=== PATIENT | female | born 1970 | race Caucasian/White ===

== ENCOUNTER → 2019-01-16 | Outpatient (CLI) | payer BC, SELFPAY ==
--- NOTE | 2019-01-16 12:30 | US_ITS ---
STUDY: THYROID ULTRASOUND REASON FOR EXAM: Female, 48 years old. Cystic thyroid nodules TECHNIQUE: Ultrasound evaluation of the thyroid was performed with real-time and static godoy-scale imaging. COMPARISON: None. FINDINGS: RIGHT LOBE: The right lobe of the thyroid gland measures 5.4 x 2.3 x 1.8 cm. There is a heterogeneous echotexture. There are multiple right thyroid lobe nodules, some of which are solid and some are complex cystic in nature. The largest is located in the midpole and measures 2.5 x 2.0 x 1.3 cm. Vascularity of these nodules is predominantly perinodular. LEFT LOBE: The left lobe of the thyroid gland measures 5.5 x 1.7 x 1.8 cm. There is a heterogeneous echotexture. There are multiple cystic to complex cystic nodules of the left thyroidal lobe, the largest located in the midpole measuring 1.8 x 1.3 x 1.3 cm. ISTHMUS: The isthmus measures 3 mm . The regional lymph nodes are normal. US/Thyroid IMPRESSION: Multiple right thyroid nodules some of which are solid and some of which are complex cystic in nature. Multiple cystic to complex cystic left thyroid lobe nodules also noted. No thyroidal calcifications are seen. The perithyroidal soft tissue fascial planes are preserved. Electronically Signed: Tremaine George MD at 22:32 EDT , Service support ,
== END | disposition home or self-care (01) ==
PROVIDERS: Family Provider Internal Medicine; PCP Internal Medicine; Referring Provider Internal Medicine; Visit Provider Internal Medicine
DX: E04.1 Nontoxic single thyroid nodule (principal)
CPT/HCPCS: 76536

== ENCOUNTER 2019-11-15 18:50 | Inpatient (IN) | payer MEDICAID, SELFPAY ==
[2019-11-15 18:51] VITALS: BP 121/94; PULSE 74; RESP 16; TEMP 36.4; O2SAT 99; BMI 25.0
--- NOTE | 2019-11-15 19:06 | EKG12_ITS ---
Test Reason : DETOX Blood Pressure : / mmHG Vent. Rate : 100 BPM Atrial Rate : 100 BPM P-R Int : 128 ms QRS Dur : 080 ms QT Int : 332 ms P-R-T Axes : 057 066 056 degrees QTc Int : 428 ms Normal sinus rhythm Normal ECG Confirmed by BEN NOBLES, NETTE ([id number]), scientific editor HELIO PONCE ([id number] on 11/19/2019 3:17:56 PM Referred By: BOBBY Confirmed By:NETTE CONTRERAS MD
--- NOTE | 2019-11-15 19:09 | ED.DCSUM_ITS ---
History of Present Illness Chief Complaint: Substance Abuse Informant: Patient Onset: Weeks Context: Gradual Onset Timing: Continuous Current Severity: Moderate Maximum Severity: Severe Narrative: The patient is a 49-year-old female with history of mild COPD who presents to the emergency department requesting alcohol detox. Patient states that she has a history of chronic alcohol abuse. She has been through rehab before. She states that she actually maintained sobriety for 8 years, had a relapse, and went through the [facility] outpatient program. She states that she been doing well for another few years, but then relapsed again. She states she is been drinking 7 or 8 24 ounce beers daily. She states there is days when she would drink and not eat. She has discussed this with her counselor at [facility] and was referred here for inpatient detox. She has been drinking daily for the past 2 months. She denies any fevers or chills. She denies abdominal pain. She states that she just needs help with her alcohol dependence. Prior similar symptoms: Yes Recent Illness/Hospitalization: No Past Medical History - Allergies and Home Meds Allergies/Adverse Reactions: Allergies No Known Allergies Allergy (Verified 11/15/19 18:51) Primary Care Physician: Beatrice Gonzalez DO [Primary Care Provider] - Prior records reviewed: Yes Past Medical History: - - COPD Surgical History: noncontributory Review of Systems General: Denies: Chills, Fever, Sweats Eyes: Denies: Visual changes - bilaterally, Diplopia ENT: Denies: Rhinorrhea, Sore throat Cardiovascular: Denies: Chest pain, Palpitations Respiratory: Denies: Dyspnea, Cough, Dyspnea on exertion Gastrointestinal: Denies: Abdominal pain, Nausea, Vomiting, Diarrhea, Melena, Hematochezia Genitourinary: Denies: Dysuria, Hematuria, Frequency Musculoskeletal: Denies: Back pain, Extremity Pain Skin: Denies: Rash, Wounds Neurological: Denies: Headache, Weakness, Numbness Physical Exam Vital Signs/Narrative: Vital Signs Temp Pulse Resp BP Pulse Ox 11/15/19 18:51 97.5 F L 74 16 121/94 H 99 Inital Vital Signs reviewed: Yes General: Well nourished, Well developed, No Acute Distress Head: Normocephalic, Atraumatic Eyes: Perrl, EOMI ENT: Moist mucous membranes, No rhinorrhea Neck: Supple, Nontender Cardiovascular: Regular rate, Regular rhythm, No murmurs Respiratory: No distress, CTA bilaterally, Chest nontender Abdomen: Soft, Nontender, Nondistended, Normal bowel sounds Back: Nontender, Normal Inspection Extremities: Nontender, No edema Skin: Normal color, No rash Neurological: Alert, Oriented x3, Cranial nerves II-XII grossly intact, Normal Strength, Normal Sensation Psychological: Normal affect, Normal Mood Diagnostic/Tx/Re-eval Abnormal Lab Results 11/15/19 19:40 WBC 10.7 RBC 5.04 Hgb 14.6 Hct 43.3 MCV 85.9 MCH 29.0 MCHC 33.7 RDW Std Deviation 40.6 RDW Coeff of Fortino 13.2 Plt Count 291 MPV 9.9 Immature Gran % (Auto) 0.400 Neut % (Auto) 65.0 Lymph % (Auto) 30.2 [place] % (Auto) 3.5 Eos % (Auto) 0.5 Baso % (Auto) 0.4 Absolute Neuts (auto) 7.0 Absolute Lymphs (auto) 3.24 Nucleated RBC % 0 - Medical Decision Making The patient presents to the emergency department requesting detox for her alcohol dependence. EKG was obtained. Was sinus rhythm without acute ischemic change. Patient was not hypertensive or tachycardic. Labs are currently pen ding. The patient was discussed with the hospitalist, and given history of alcohol dependence and history of withdrawal, she will be admitted to the detox program. Impression 1. Alcohol dependence ED Disposition - Plan for ED Patient: Referrals: Beatrice Gonzalez DO [Primary Care Provider] -
[2019-11-15] MEDS: 0.9% Normal Saline 1,000 ML 1000 ML IV (19:38)
[2019-11-15 19:53] LABS: Absolute Lymphocyte Count 3.24 X10^3/uL (0.83-4.51); Basophil# 0.04 X10^3/uL; Basophil% 0.4 % (0-1); Eosinophil# 0.05 X10^3/uL; Eosinophils% 0.5 % (0-5); Hematocrit 43.3 % (37-47); Hemoglobin 14.6 g/dL (12.0-15.0); Lymphocyte # 3.24 X10^3/ul (4.0); Lymphocyte % 30.2 % (19-41); Mean Corp Hgb Conc 33.7 g/dL (32-36); Mean Corpuscular Volume 85.9 fL (81-99); Mean Platelet Vol. 9.9 fl (6.2-12.0); Monocyte# 0.38 X10^3/uL; Monocyte% 3.5 % (0-10); NRBC Flagged by Analyzer 0 % (0-5); Neutrophil # 6.99 X10^3/uL (2.7-7.7); Platelet Count 291 K/mm3 (150-450); RBC Distribution Width CV 13.2 % (11.6-14.6); RBC Distribution Width SD 40.6 fl (35.1-43.9); Red Blood Count 5.04 M/mm3 (4.2-5.4); White Blood Count 10.7 K/mm3 (4.4-11.0)
--- NOTE | 2019-11-15 20:06 | CM.ED ---
Social Work Consult: Substance Abuse Informant: Dr. Boyd Chief Complaint: Patient seeking detox from Alcohol. Drink of choice is vodka but patient has been drinking beer because I thought it would be better. Assessment: Met with patient in room. Introduced self as well as social service assistant role. Patient is agreeable to speaking with this social service assistant. Patient sent by [facility] counselor, Krystin for the detox program. Patient gymnastic coach is Silvia Ruiz through [facility]. Per patient plan is for patient to detox and then begin IOP program through [facility]. Patient stating to have graduated from [facility] program in July and to have relapsed in August due to COVID-19 pandemic and being stuck in [place] with patient , it is a toxic relationship. Patient stating to also smoke tobacco and is requesting to be able to smoke a cigarette prior to admission to medical unit, patient educated that patient will be breaking contract if patient goes out to smoke. Nursing staff having patient sign contract. Patient is agreeable to program and wanting detox. Patient with history of detox through [facility] in 2018. Patient with no further questions. Telephone call to Giulia Song. Voicemail left updating on patient being admitted for medical management of withdrawal symptoms. Jolanta Oglesby MSW, DERICK
[2019-11-15 20:11] LABS: ALB/GLOB Ratio 0.9 RATIO (0.9-2.4); AST(SGOT) 22 U/L (15-37); Alanine Aminotransfer ALT/SGPT 25 U/L (13-56); Albumin, Serum 3.6 g/dL (3.2-5.0); Alkaline Phosphatase 77 U/L (45-117); Anion Gap 10 (5-15); BUN 11 mg/dL (7-18); BUN/Creat Ratio 14.8 RATIO (10-20); Calcium,Total 8.4 mg/dL (8.5-10.1); Chloride 105 mmol/L (98-107); Creatinine, Serum 0.74 mg/dL (0.55-1.02); EST Glomerular Filtration Rate 88 mL/min (>60); Est Glom Filt Rate - Afr Amer 106 mL/min (>60); Estimated Creatinine Clearance 89.43 ml/min; Glucose 95 mg/dL (74-106); Potassium 4.2 mmol/L (3.5-5.1); Protein, Total 7.6 g/dL (6.4-8.2); Sodium Level 137 mmol/L (136-145)
--- NOTE | 2019-11-15 20:19 | PCM.HP.STD ---
Problem List (1) Alcohol withdrawal Status: Acute Qualifiers: Complication of substance-induced condition: uncomplicated Qualified Code(s): F10.230 - Alcohol dependence with withdrawal, uncomplicated History of Present Illness Date of Admission: 11/15/19 Chief Complaint: alchol withdrawal The patient is a 49 year old F who has been drinking 624 ounce beers daily for the past 2 months. Had been sober up until then. Went to [facility] today and they sent her to the emergency room to seek further treatment for her alcohol withdrawal. Patient states that she is just experiencing a general sense of unease and tremulousness. Patient was vomiting while she was drinking and states that she normally has diarrhea when she drinks. Denies any hallucinations. [] Past Medical History Medical History: Medical History (Last Updated 11/15/19 @ 20:[address] Riccardo Malik, DO) Alcoholism /alcohol abuse F10.20 COPD (chronic obstructive pulmonary disease) J44.9 Allergies No Known Allergies Allergy (Verified 11/15/19 18:51) Home Medications: Ambulatory Orders Medication Instructions Recorded Budesonide/Formoterol Fumarate 1 11/15/19 [Symbicort 160-4.5 Mcg Inhaler] Surgical History: noncontributory Lives: With Family Smoking Status: Heavy Smoker (>10/day) Tobacco Use: Cigarettes Alcohol: Heavy Drugs: None - *Family History Maternal History Items: No pertinent history, - Review of Systems Constitutional: Denies: Anorexia, Chills, Fever, Night Sweats Eyes: Denies: Blurred vision, Conjunctivae Inflammation HEENT: Denies: Head Aches, Sinus Congestion, Sinus Drainage Cardiovascular: Denies: Chest Pain, Palpitations Respiratory: Denies: Cough, Shortness of breath at rest, Sputum production Gastrointestinal: Reports: Nausea, Vomiting. Denies: Abdominal Pain Genitourinary: Denies: Dysuria Musculoskeletal: Denies: Joint Pain, Joint Tenderness Skin: Denies: Dryness, Jaundice Neurological: Denies: Numbness, Tingling, Focal weakness Comment: All review of systems were negative except as mentioned above in the history of present illness and the other review of systems. VTE Information - Inpt Only VTE Present on Admission: No VTE Mechan Device Prophylaxis: None VTE Pharm Prophylaxis ordered?: No Reason prophylaxis not ordered:: Treatment Not Indicated Patient Problems: Active and Suspected Problems Alcohol withdrawal (Acute) - Physical Exam Vitals/I&O's: Vital Signs Temp Pulse Resp BP Pulse Ox 36.4 C L 74 16 121/94 H 99 11/15/19 18:51 11/15/19 18:51 11/15/19 18:51 11/15/19 18:51 11/15/19 18:51 Weight: 72.575 kg Body Mass Index (BMI) 25.0 General: Alert, Cooperative, No apparent distress HEENT: Atraumatic, Normocephalic Oral: Moist Mucosa, No Gingival or Mucosal Lesions/ Ulcerations Neck: Negative Carotid Bruits, No Nodes Lungs: Clear to auscultation, Normal air movement, No rhonchi, No wheeze Cardiovascular: Regular rate, Regular Rhythm, Normal S1, Normal S2, No murmurs Abdomen: Bowel Sounds Present, Soft, Non Tender, Non-Distended, No Hepato-splenomegaly Extremities: No clubbing, No edema Skin: No rashes, No breakdown Psych/Mental Status: Normal Affect, Appropriate Laboratory Results 11/15/19 19:40: WBC 10.7, RBC 5.04, Hgb 14.6, Hct 43.3, MCV 85.9, MCH 29.0, MCHC 33.7, RDW Std Deviation 40.6, RDW Coeff of Fortino 13.2, Plt Count 291, MPV 9.9, Immature Gran % (Auto) 0.400, Neut % (Auto) 65.0, Lymph % (Auto) 30.2, [place] % (Auto) 3.5, Eos % (Auto) 0.5, Baso % (Auto) 0.4, Absolute Neuts (auto) 7.0, Absolute Lymphs (auto) 3.24, Nucleated RBC % 0 11/15/19 19:40: Sodium 137, Potassium 4.2, Chloride 105, Carbon Dioxide 22.0, Anion Gap 10, BUN 11, Creatinine 0.74, Estim Creat Clear Calc 89.43, Est GFR (MDRD) Af Amer 106, Est GFR (MDRD) Non-Af 88, BUN/Creatinine Ratio 14.8, Glucose 95, Calcium 8.4 L, Total Bilirubin 0.30, AST 22, ALT 25, Alkaline Phosphatase 77, Total Protein 7.6, Albumin 3.6, Globulin 4.0, Albumin/Globulin Ratio 0.9 11/15/19 19:40: Ethyl Alcohol Pending Assessment/Plan All Active Problems Alcohol withdrawal (Acute) 1. Acute alcohol withdrawal: Currently patient symptoms are benign but patient's last drink was roughly 1 hour ago. Plan is to initiate a phenobarbital taper. Patient also be on additional agents for other somatic complaints, including anxiety, nausea and vomiting etc. She will also be on thiamine and folate. Told the patient that her length of stay will take her over the weekend and that barring any defervescent's, such as delirium tremens, the plan would be for her to be discharged on the . Patient would then go to [facility] at that point. 2. COPD: Stable. Continue with home medications 3. Tobacco abuse: Smokes 1 pack/day. Nicotine patch. 4. VTE prophylaxis: Low risk. 5. Advanced care planning: Patient wishes to be full CODE STATUS. Inpatient E&M: [id number] Init Hosp L2
[2019-11-15 20:27] LABS: Bacteria 0 SEEN /hpf (None Seen); Mucous, Urine 0 SEEN /hpf (<or=2+); Red Blood Cells-Urine 0 SEEN /hpf (0-5)
[2019-11-15 20:46] LABS: Color, Urine Straw (Yellow); Glucose, Dipstick Normal (Normal); Ketone-Dipstick Negative (Negative); Leukocyte Esterase-Dipstick Negative /ul (Negative); Nitrite-Dipstick Negative (Negative); Occult Blood-Urine Negative /ul (Negative); Protein-Dipstick Negative (Negative); Urine Bilirubin Dipstick Negative (Negative); Urine Clarity Clear (Clear); Urine Urobilinogen Normal (Normal); Urine pH 6.5 (5.0 - 8.0)
[2019-11-15 20:49] LABS: Internal QC Validated? YES +Cl - CLEAR BKGD; Pregnancy, Urine Negative Negative
[2019-11-15 21:15] LABS: Squamous Epithelial Cells - UA 0-5 SEEN /hpf (5-10)
[2019-11-15 21:16] LABS: White Blood Cells 0-5 SEEN /hpf (0-5)
[2019-11-15 21:23] VITALS: BP 120/78; PULSE 80; RESP 18; TEMP 36.9; O2SAT 97
[2019-11-15 21:23] LABS: Amphetamine Urine VISTA NEGATIVE (<1000 ng/mL); Barbiturate Urine VISTA NEGATIVE (< 200 ng/mL); Benzodiazepine Urine VISTA NEGATIVE (< 200 ng/mL); Cocaine Urine VISTA NEGATIVE (< 300 ng/mL); Ecstacy Urine VISTA NEGATIVE (< 500 ng/mL); Methadone Urine VISTA NEGATIVE (< 300 ng/mL); PCP Urine VISTA NEGATIVE (< 25 ng/mL); THC Urine VISTA NEGATIVE (< 50 ng/mL); Vista UDS pH Range 6
[2019-11-15 21:25] VITALS: BMI 26.1
[2019-11-15 21:49] VITALS: BP 122/53; PULSE 89; RESP 16; TEMP 37; O2SAT 96
[2019-11-15] MEDS: traZODone 100 MG Tablet PO (22:20)
[2019-11-15] MEDS: Phenobarbital 32.4 MG Tablet 64.8 MG PO (22:20)
[2019-11-16 02:00] VITALS: BP 109/53; PULSE 80; RESP 18; TEMP 36.8; O2SAT 96
[2019-11-16] MEDS: Phenobarbital 32.4 MG Tablet 64.8 MG PO ×6 (02:09→22:27)
[2019-11-16 05:58] VITALS: BP 125/55; PULSE 86; RESP 16; TEMP 36.7; O2SAT 97
[2019-11-16 08:01] VITALS: BP 113/62; PULSE 81; RESP 16; TEMP 36.9; O2SAT 97
[2019-11-16] MEDS: Folic Acid 1 MG Tablet PO (08:17)
[2019-11-16] MEDS: Thiamine Hydrochloride 100 MG Tablet PO (08:17)
--- NOTE | 2019-11-16 11:14 | PCM.PN.HOSP ---
Patient Problems: Active and Suspected Problems (Last Updated 11/15/19 @ 20:[address] Riccardo Malik, DO) Alcohol withdrawal (Acute) Reason for Visit: Alcohol withdrawal Subjective: No complaints at this time. This AM she had increased upper extremity tremor however this resolved after last dose of phenobarb. She is tired and sleeping more than usual. She has never had withdrawal seizure. No prior ICU admissions for alcohol withdrawal. In the past she had withdrawal hallucinations and thought ants were crawling up her arms. She started drinking again in August citing the current pandemic as the inciting factor. Vitals/I&O's: Vital Signs Temp Pulse Resp BP Pulse Ox 98.4 F 81 16 113/62 97 11/16/19 08:01 11/16/19 08:01 11/16/19 08:01 11/16/19 08:01 11/16/19 08:01 Oxygen Delivery Method Room Air Weight: 166 lb 8 oz Body Mass Index (BMI) 26.1 Intake and Output for Last 24 Hours 11/14/19 11/15/19 11/16/19 23:59 23:59 23:59 Intake Total 1600 / 1600 1280 / 1280 Balance 1600 / 1600 1280 / 1280 General: Alert, Oriented x3, Cooperative HEENT: Atraumatic, PERRLA, EOMI, Normocephalic Neck: Supple, No JVD, Negative Carotid Bruits Lungs: Clear to auscultation, Normal air movement Cardiovascular: Regular rate, No murmurs Abdomen: Bowel Sounds Present, Soft, Non Tender Extremities: No edema, Capillary Refill Less than 3 Seconds Skin: No rashes, No breakdown Musculoskeletal: No Tenderness to Palpation of Joints or Extremities Neurological: Cranial nerves II-XII grossly intact Psych/Mental Status: Normal Affect, Appropriate, Alert and oriented to time, place, person, mood and affect Laboratory Results 11/15/19 19:40: WBC 10.7, RBC 5.04, Hgb 14.6, Hct 43.3, MCV 85.9, MCH 29.0, MCHC 33.7, RDW Std Deviation 40.6, RDW Coeff of Fortino 13.2, Plt Count 291, MPV 9.9, Immature Gran % (Auto) 0.400, Neut % (Auto) 65.0, Lymph % (Auto) 30.2, [place] % (Auto) 3.5, Eos % (Auto) 0.5, Baso % (Auto) 0.4, Absolute Neuts (auto) 7.0, Absolute Lymphs (auto) 3.24, Nucleated RBC % 0 11/15/19 19:40: Sodium 137, Potassium 4.2, Chloride 105, Carbon Dioxide 22.0, Anion Gap 10, BUN 11, Creatinine 0.74, Estim Creat Clear Calc 89.43, Est GFR (MDRD) Af Amer 106, Est GFR (MDRD) Non-Af 88, BUN/Creatinine Ratio 14.8, Glucose 95, Calcium 8.4 L, Total Bilirubin 0.30, AST 22, ALT 25, Alkaline Phosphatase 77, Total Protein 7.6, Albumin 3.6, Globulin 4.0, Albumin/Globulin Ratio 0.9 11/15/19 19:40: Ethyl Alcohol 215.0 11/15/19 20:20: Urine Test Negative 11/15/19 20:20: Urine Color Straw, Urine Clarity Clear, Urine pH 6.5, Ur Specific [place] 1.010, Urine Protein Negative, Urine Glucose (UA) Normal, Urine Ketones Negative, Urine Occult Blood Negative, Urine Nitrite Negative, Urine Bilirubin Negative, Urine Urobilinogen Normal, Ur Leukocyte Esterase Negative, Urine RBC 0 SEEN, Urine WBC 0-5 SEEN, Ur Squamous Epith Cells 0-5 SEEN, Urine Bacteria 0 SEEN, Urine Mucus 0 SEEN 11/15/19 20:20: Urine Opiates Screen NEGATIVE, Urine Methadone Screen NEGATIVE, Ur Barbiturates Screen NEGATIVE, Ur Phencyclidine Scrn NEGATIVE, Ur Amphetamines Screen NEGATIVE, U Methamphetamin-MDMA NEGATIVE, U Benzodiazepines Scrn NEGATIVE, Urine Cocaine Screen NEGATIVE, U Cannabinoids Screen NEGATIVE, Ur Drug Screen Comment Current Medications Acetaminophen (Tylenol) 500 mg PO Q4H PRN PRN PRN Reason: Temp > 100.4 F Dicyclomine HCl (Bentyl) 20 mg PO Q6H PRN PRN PRN Reason: abdominal discomfort Folic Acid (Folic Acid) 1 mg PO DAILY@0800 [facility] Last Admin: 11/16/19 08:17 Dose: 1 mg Documented by: Gabapentin (Neurontin) 300 mg PO Q8H PRN PRN PRN Reason: moderate to severe anxiety Hydroxyzine Pamoate (Vistaril Pamoate Capsule) 50 mg PO Q4H PRN PRN PRN Reason: mild anxiety Ibuprofen (Motrin) 600 mg PO Q8H PRN PRN PRN Reason: Pain Score 1-10/10 Loperamide HCl (Imodium) 2 mg PO Q4H PRN PRN PRN Reason: LOOSE STOOLS Nicotine (Nicoderm Cq (Pbkc)) 21 mg TRANSDERM. DAILY ROZ Last Admin: 11/16/19 10:39 Dose: 21 mg Documented by: Ondansetron HCl (Zofran) 8 mg PO Q8H PRN PRN PRN Reason: NAUSEA Phenobarbital (Phenobarbital) 97.2 mg PO Q4H ROZ; Taper Stop: 11/20/19 02:59 Last Admin: 11/16/19 10:38 Dose: 97.2 mg Documented by: Sodium Chloride () 10 - 40 ml IV UD PRN PRN Reason: SALINE FLUSH Thiamine HCl (Vitamin B1) 100 mg PO DAILYCM ROZ Last Admin: 11/16/19 08:17 Dose: 100 mg Documented by: Trazodone HCl (Desyrel) 100 mg PO QHS PRN PRN Reason: INSOMNIA Last Admin: 11/15/19 22:20 Dose: 100 mg Documented by: STROKE Vital Signs/Narrative: Vital Signs Temp Pulse Resp BP Pulse Ox 11/16/19 08:01 98.4 F 81 16 113/62 97 Medical Necessity - Tobacco Use Smoking Status: Current every day smoker Tobacco Use: Cigarettes Assessment/Plan All Active Problems (Last Updated 11/15/19 @ 20:[address] Riccardo Malik, DO) Alcohol withdrawal (Acute) 1. Alcoholism with acute withdrawal - continue phenobarb taper. symptoms well controlled. no prior seizures or ICU admission for detox. F/u with [facility] at dc. 2. COPD - no exacerbation - continue budesonide daily. DVT ppx: early ambulation This patient was seen by Sukh Pierce PA-C under the supervision of Dr. Osorio
[2019-11-16 13:13] VITALS: PULSE 89; RESP 16; O2SAT 98
[2019-11-16] MEDS: Budesonide Respules 0.5 MG/2 ML AMPUL.NEB. INHALATION (13:13)
[2019-11-16 14:00] VITALS: BP 126/67; PULSE 80; RESP 16; TEMP 37.2; O2SAT 99
[2019-11-16] MEDS: Loperamide 2 MG Capsule PO (22:27)
[2019-11-16] MEDS: traZODone 100 MG Tablet PO (22:27)
[2019-11-17] VITALS (7 sets, daily range): BP systolic 111–134; BP diastolic 63–88; PULSE 67–87; RESP 16–18; TEMP 36.6–36.9; O2SAT 96–99
[2019-11-17] MEDS: Phenobarbital 32.4 MG Tablet 64.8 MG PO ×6 (02:59→22:35)
[2019-11-17] MEDS: Budesonide Respules 0.5 MG/2 ML AMPUL.NEB. INHALATION ×2 (06:50→19:06)
[2019-11-17] MEDS: Thiamine Hydrochloride 100 MG Tablet PO (10:15)
[2019-11-17] MEDS: Folic Acid 1 MG Tablet PO (10:15)
--- NOTE | 2019-11-17 10:34 | PN_ITS ---
Patient Problems: Active and Suspected Problems (Last Updated 11/15/19 @ 20:[address] Riccardo Malik, DO) Alcohol withdrawal (Acute) Subjective: Alcohol withdrawal Objective: Pt resting comfortably in bed NAD. Sleeping frequently, tired. Otherwise no complaints. No tremor, nausea/vomiting, diarrhea, BALL, hallucinations. Vitals/I&O's: Vital Signs Temp Pulse Resp BP Pulse Ox 98.2 F 87 16 120/63 99 11/17/19 10:12 11/17/19 10:12 11/17/19 10:12 11/17/19 10:12 11/17/19 10:12 Oxygen Delivery Method Room Air Weight: 166 lb 8 oz Body Mass Index (BMI) 26.1 Intake and Output for Last 24 Hours 11/15/19 11/16/19 11/17/19 23:59 23:59 23:59 Intake Total 1600 / 1600 1280 / 1280 1220 / 1220 Balance 1600 / 1600 1280 / 1280 1220 / 1220 General: Alert, Oriented x3, Cooperative HEENT: Atraumatic, PERRLA, EOMI, Normocephalic Neck: Supple, No JVD, Negative Carotid Bruits Lungs: Clear to auscultation, Normal air movement Cardiovascular: Regular rate, No murmurs Abdomen: Bowel Sounds Present, Soft, Non Tender Extremities: No edema, Capillary Refill Less than 3 Seconds Skin: No rashes, No breakdown Musculoskeletal: No Tenderness to Palpation of Joints or Extremities Neurological: Cranial nerves II-XII grossly intact Psych/Mental Status: Normal Affect, Appropriate, Alert and oriented to time, place, person, mood and affect Current Medications Acetaminophen (Tylenol) 500 mg PO Q4H PRN PRN PRN Reason: Temp > 100.4 F Budesonide (Pulmicort Aerosol) 0.5 mg INHALATION BID.RT [facility] Last Admin: 11/17/19 06:50 Dose: 0.5 mg Documented by: Dicyclomine HCl (Bentyl) 20 mg PO Q6H PRN PRN PRN Reason: abdominal discomfort Folic Acid (Folic Acid) 1 mg PO DAILY@0800 [facility] Last Admin: 11/17/19 10:15 Dose: 1 mg Documented by: Gabapentin (Neurontin) 300 mg PO Q8H PRN PRN PRN Reason: moderate to severe anxiety Hydroxyzine Pamoate (Vistaril Pamoate Capsule) 50 mg PO Q4H PRN PRN PRN Reason: mild anxiety Ibuprofen (Motrin) 600 mg PO Q8H PRN PRN PRN Reason: Pain Score 1-10/10 Loperamide HCl (Imodium) 2 mg PO Q4H PRN PRN PRN Reason: LOOSE STOOLS Last Admin: 11/16/19 22:27 Dose: 2 mg Documented by: Nicotine (Nicoderm Cq (Pbkc)) 21 mg TRANSDERM. DAILY ROZ Last Admin: 11/17/19 10:15 Dose: 21 mg Documented by: Ondansetron HCl (Zofran) 8 mg PO Q8H PRN PRN PRN Reason: NAUSEA Phenobarbital (Phenobarbital) 64.8 mg PO Q4H ROZ; Taper Stop: 11/20/19 02:59 Last Admin: 11/17/19 10:15 Dose: 64.8 mg Documented by: Sodium Chloride () 10 - 40 ml IV UD PRN PRN Reason: SALINE FLUSH Thiamine HCl (Vitamin B1) 100 mg PO DAILYCM ROZ Last Admin: 11/17/19 10:15 Dose: 100 mg Documented by: Trazodone HCl (Desyrel) 100 mg PO QHS PRN PRN Reason: INSOMNIA Last Admin: 11/16/19 22:27 Dose: 100 mg Documented by: STROKE Vital Signs/Narrative: Vital Signs Temp Pulse Resp BP Pulse Ox 11/17/19 10:12 98.2 F 87 16 120/63 99 11/17/19 06:50 69 16 97 Medical Necessity - Tobacco Use Smoking Status: Current every day smoker Tobacco Use: Cigarettes Assessment/Plan All Active Problems (Last Updated 11/15/19 @ 20:[address] Riccardo Malik, DO) Alcohol withdrawal (Acute) 1. Alcoholism with acute withdrawal - continue phenobarb taper. no compalints. no prior seizures or ICU admission for detox. F/u with [facility] at dc. 2. COPD - no exacerbation - continue budesonide daily. DVT ppx: early ambulation This patient was seen by Sukh Pierce PA-C under the supervision of Dr. Osorio
[2019-11-17] MEDS: Loperamide 2 MG Capsule PO ×3 (14:39→22:34)
[2019-11-17] MEDS: Ibuprofen 600 MG Tablet PO (14:40)
[2019-11-17] MEDS: BENZOCAINE/MENTHOL 1 LOZENGE MUCOUS MEM (18:33)
[2019-11-17] MEDS: traZODone 100 MG Tablet PO (22:34)
[2019-11-18 02:06] VITALS: BP 103/60; PULSE 63; RESP 14; TEMP 36.5; O2SAT 97
[2019-11-18] MEDS: Phenobarbital 32.4 MG Tablet 64.8 MG PO ×3 (02:07→13:13)
[2019-11-18 06:49] VITALS: PULSE 74; RESP 16; O2SAT 94
[2019-11-18] MEDS: Budesonide Respules 0.5 MG/2 ML AMPUL.NEB. INHALATION (06:49)
[2019-11-18 07:35] VITALS: BP 133/70; PULSE 78; RESP 18; TEMP 36.6; O2SAT 98
[2019-11-18] MEDS: Folic Acid 1 MG Tablet PO (07:43)
[2019-11-18] MEDS: Thiamine Hydrochloride 100 MG Tablet PO (07:44)
[2019-11-18] MEDS: Ibuprofen 600 MG Tablet PO (07:52)
[2019-11-18] MEDS: BENZOCAINE/MENTHOL 1 LOZENGE MUCOUS MEM (07:57)
--- NOTE | 2019-11-18 09:00 | CASEMGMT ---
Addendum entered by Farheen Perdomo 11/18/19 11:47: Pt is discharging today. JOSÉ MIGUEL spoke with RN, updated RN that [facility] will need to see pt today before pt can discharge. JOSÉ MIGUEL placed call to Giulia at [facility] and updated Giulia that pt will be discharged today, will need to be seen. Giulia states she will be at [facility] later this afternoon and will see pt first. JOSÉ MIGUEL updated RN. Original Note: Social Work Note JOSÉ MIGUEL placed a call to Giulia at [facility] and left message that pt is still at [facility], will need to be seen. Farheen Perdomo CONSUMER SERVICES CONSULTANT, FURNITURE MOVER DRIVER
--- NOTE | 2019-11-18 11:44 | PCM.DC ---
- Discharge Diagnoses Current Active Problems: Current Active and Chronic Problems (Last Updated 11/15/19 @ 20:[address] Riccardo Malik DO) Alcohol withdrawal (Acute) You will use the following diet at home:: Other - no alcohol at all Your food should be the consistency of: Regular Your liquids should be the consistency of: Regular/Thin Discharge Activity: Return to Normal Activity Allergies/Adverse Reactions: Allergies No Known Allergies Allergy (Verified 11/15/19 18:51) Medications to take at Discharge Budesonide/Formoterol Fumarate [Symbicort 160-4.5 Mcg Inhaler] 2 puff INHALATION DAILY 11/15/19 traZODone [Desyrel] 100 mg PO QHS PRN 11/15/19 Nicotine [Nicotine Patch] 21 mg TD DAILY #14 patch.td24 11/18/19 The following prescriptions were given: Nicotine [Nicotine Patch] 21 mg TD DAILY #14 patch.td24 Transmission Status: Pending to [id number] Primary Care Physician: Beatrice Gonzalez DO [Primary Care Provider] - Please follow up with your Primary Care Physician in: 1-2 weeks Test Results: Test results from this visit will be discussed in further detail at your follow-up appointment, if applicable. Please Follow Up With: [facility] Program When: as soon as possible Proposed Discharge Date: 11/18/19
--- NOTE | 2019-11-18 11:47 | PCM.DC.SUM ---
<Sukh Pierce - Last Filed: 11/18/19 11:47> Discharge Date and Diagnosis - Problem List Patient Problems: Active and Suspected Problems (Last Updated 11/15/19 @ 20:[address] Riccardo Malik DO) Alcohol withdrawal (Acute) Date of Admission: 11/15/19 Date of Discharge: 11/18/19 - Primary Discharge Diagnosis Active and Suspected Problems (Last Updated 11/15/19 @ 20:[address] Riccardo Malik DO) Alcoholism with acute withdrawal COPD no exacerbation Hospital Course and Treatment Operations: None Procedures: None Summary of Care Provided: Hospital Course: The patient is a 49 year old F with pmhx alcoholism, COPD, and nicotine abuse who presented to the ER with request for help with alcohol detox. She was drinking 6x24 oz beers daily for about 2 months. She was sent to the ER by 180. She c/o tremulousness, and unsease, nausea/vomiting. She was admitted to med/surg and placed on a phenobarbital taper. She completed the detox program with very minimal symptoms. She was discharged home in stable condition. She will follow up with her PCP in 1-2 weeks and with [facility] this week. She also requested an Rx for nicotine patches which I have provided for her for the first 2 weeks. This patient was seen by Sukh Pierce PA-C under the supervision of Dr. Almanza. [] Patient Problems: Active and Suspected Problems (Last Updated 11/15/19 @ 20:[address] Riccardo Malik DO) Alcohol withdrawal (Acute) - Physical Exam Vitals/I&O's: Vital Signs Temp Pulse Resp BP Pulse Ox 97.8 F 78 18 133/70 H 98 11/18/19 07:35 11/18/19 07:35 11/18/19 07:35 11/18/19 07:35 11/18/19 07:35 Oxygen Delivery Method Room Air Weight: 166 lb 8 oz Body Mass Index (BMI) 26.1 Intake and Output for Last 24 Hours 11/16/19 11/17/19 11/18/19 23:59 23:59 23:59 Intake Total 1280 / 1280 2420 / 2420 900 / 900 Balance 1280 / 1280 2420 / 2420 900 / 900 General: Alert, Oriented x3, Cooperative HEENT: Atraumatic, PERRLA, EOMI, Normocephalic Neck: Supple, No JVD, Negative Carotid Bruits Lungs: Clear to auscultation, Normal air movement Cardiovascular: Regular rate, No murmurs Abdomen: Bowel Sounds Present, Soft, Non Tender Extremities: No edema, Capillary Refill Less than 3 Seconds Skin: No rashes, No breakdown Musculoskeletal: No Tenderness to Palpation of Joints or Extremities Neurological: Cranial nerves II-XII grossly intact Psych/Mental Status: Normal Affect, Appropriate, Alert and oriented to time, place, person, mood and affect Current Medications Acetaminophen (Tylenol) 500 mg PO Q4H PRN PRN PRN Reason: Temp > 100.4 F Budesonide (Pulmicort Aerosol) 0.5 mg INHALATION BID.RT [facility] Last Admin: 11/18/19 06:49 Dose: 0.5 mg Documented by: Dicyclomine HCl (Bentyl) 20 mg PO Q6H PRN PRN PRN Reason: abdominal discomfort Folic Acid (Folic Acid) 1 mg PO DAILY@0800 [facility] Last Admin: 11/18/19 07:43 Dose: 1 mg Documented by: Gabapentin (Neurontin) 300 mg PO Q8H PRN PRN PRN Reason: moderate to severe anxiety Hydroxyzine Pamoate (Vistaril Pamoate Capsule) 50 mg PO Q4H PRN PRN PRN Reason: mild anxiety Ibuprofen (Motrin) 600 mg PO Q8H PRN PRN PRN Reason: Pain Score 1-10/10 Last Admin: 11/18/19 07:52 Dose: 600 mg Documented by: Loperamide HCl (Imodium) 2 mg PO Q4H PRN PRN PRN Reason: LOOSE STOOLS Last Admin: 11/17/19 22:34 Dose: 2 mg Documented by: Nicotine (Nicoderm Cq (Pbkc)) 21 mg TRANSDERM. DAILY [facility] Last Admin: 11/18/19 07:44 Dose: 21 mg Documented by: Ondansetron HCl (Zofran) 8 mg PO Q8H PRN PRN PRN Reason: NAUSEA Phenobarbital (Phenobarbital) 64.8 mg PO Q6H [facility]; Taper Stop: 11/20/19 07:59 Last Admin: 11/18/19 07:44 Dose: 64.8 mg Documented by: Sodium Chloride () 10 - 40 ml IV UD PRN PRN Reason: SALINE FLUSH Thiamine HCl (Vitamin B1) 100 mg PO DAILYCM ROZ Last Admin: 11/18/19 07:44 Dose: 100 mg Documented by: Throat Lozenges (Cepacol Sore Throat Lozenge) 1 lozenge MUCOUS MEM Q2H PRN PRN PRN Reason: cough/sore throat Last Admin: 11/18/19 07:57 Dose: 1 lozenge Documented by: Trazodone HCl (Desyrel) 100 mg PO QHS PRN PRN Reason: INSOMNIA Last Admin: 11/17/19 22:34 Dose: 100 mg Documented by: Discharge Diet: - - no alcohol Discharge Activity: Return to Normal Activity Home Medications: Medications to take at Discharge Budesonide/Formoterol Fumarate [Symbicort 160-4.5 Mcg Inhaler] 2 puff INHALATION DAILY 11/15/19 traZODone [Desyrel] 100 mg PO QHS PRN 11/15/19 Nicotine [Nicotine Patch] 21 mg TD DAILY #14 patch.td24 11/18/19 Following Prescrptions Were Given to Patient: Nicotine [Nicotine Patch] 21 mg TD DAILY #14 patch.td24 Transmission Status: Received by [facility] Primary Care Physician: Beatrice Gonzalez DO [Primary Care Provider] - Please follow up with your Primary Care Physician in: 1-2 weeks Please Follow Up With: [facility] Program When: as soon as possible Disposition: Home Minutes spent on discharge:: 35 Patient Condition:: Stable Medical Necessity - Tobacco Use Smoking Status: Current every day smoker Tobacco Use: Cigarettes Meaningful Use Info Meaningful Use Diagnoses (Choose all that apply): None applicable <Parish Almanza - Last Filed: 11/18/19 13:22> Discharge Date and Diagnosis - Primary Discharge Diagnosis Active and Suspected Problems (Last Updated 11/15/19 @ 20:[address] Riccardo Malik DO) Alcohol withdrawal (Acute) Hospital Course and Treatment Summary of Care Provided: This patient was seen in conjunction with Sukh MARTINEZ. I have independently interviewed and examined the patient and reviewed pertinent history, examination findings, laboratory and plan of management. I have reviewed the note and agree with the documented findings with the few additional points. In brief, patient is admitted for alcohol withdrawal syndrome. Patient has history of alcohol use and dependence. Previously she also Percocet in the past. She follows Dr. Maradiaga. She managed with phenobarbital schedule and then tapered dose along with other supportive medications. She has been discharged in stable conditions. Prescription for nicotine patch sent. Discharge medication reconciliation done. Discharge follow-up instructions completed. Discharge process discussed with the patient and all questions were answered to patient's satisfaction. Total time spent, exact 35 minutes on discharge meds reconciliation, examination, coordination of care with nurses and ancillary staff, review of imaging and blood test and discussion with the patient on follow-up instructions I have discussed my assessment with Sukh MARTINEZ and orders have been reviewed. [] Subjective: Seen and examined. Patient withdrawal symptoms are controlled. Denies tachycardia, anxiety attack, tremors, abdominal pain, nausea, vomiting or hallucinations. - Physical Exam Vitals/I&O's: Vital Signs Temp Pulse Resp BP Pulse Ox 97.8 F 78 18 133/70 H 98 11/18/19 07:35 11/18/19 07:35 11/18/19 07:35 11/18/19 07:35 11/18/19 07:35 Oxygen Delivery Method Room Air Weight: 166 lb 8 oz Body Mass Index (BMI) 26.1 Intake and Output for Last 24 Hours 11/16/19 11/17/19 11/18/19 23:59 23:59 23:59 Intake Total 1280 / 1280 2420 / 2420 900 / 900 Balance 1280 / 1280 2420 / 2420 900 / 900 General: Alert, Oriented x3, Cooperative HEENT: Atraumatic, PERRLA, EOMI, Normocephalic Neck: Supple, No JVD, Negative Carotid Bruits Lungs: Clear to auscultation, Normal air movement, No rhonchi, No wheeze, No rales Cardiovascular: Regular rate, Regular Rhythm, Normal S1, Normal S2, No murmurs Abdomen: Bowel Sounds Present, Soft, Non Tender, Non-Distended Extremities: No edema, Capillary Refill Less than 3 Seconds Skin: No rashes, No breakdown Musculoskeletal: No Tenderness to Palpation of Joints or Extremities Neurological: Cranial nerves II-XII grossly intact, Deep Tendon Reflexes 2+/4 and Symmetrical, Neuro grossly intact Psych/Mental Status: Normal Affect, Appropriate Current Medications Acetaminophen (Tylenol) 500 mg PO Q4H PRN PRN PRN Reason: Temp > 100.4 F Budesonide (Pulmicort Aerosol) 0.5 mg INHALATION BID.RT [facility] Last Admin: 11/18/19 06:49 Dose: 0.5 mg Documented by: Dicyclomine HCl (Bentyl) 20 mg PO Q6H PRN PRN PRN Reason: abdominal discomfort Folic Acid (Folic Acid) 1 mg PO DAILY@0800 [facility] Last Admin: 11/18/19 07:43 Dose: 1 mg Documented by: Gabapentin (Neurontin) 300 mg PO Q8H PRN PRN PRN Reason: moderate to severe anxiety Hydroxyzine Pamoate (Vistaril Pamoate Capsule) 50 mg PO Q4H PRN PRN PRN Reason: mild anxiety Ibuprofen (Motrin) 600 mg PO Q8H PRN PRN PRN Reason: Pain Score 1-10/10 Last Admin: 11/18/19 07:52 Dose: 600 mg Documented by: Loperamide HCl (Imodium) 2 mg PO Q4H PRN PRN PRN Reason: LOOSE STOOLS Last Admin: 11/17/19 22:34 Dose: 2 mg Documented by: Nicotine (Nicoderm Cq (Pbkc)) 21 mg TRANSDERM. DAILY [facility] Last Admin: 11/18/19 07:44 Dose: 21 mg Documented by: Ondansetron HCl (Zofran) 8 mg PO Q8H PRN PRN PRN Reason: NAUSEA Phenobarbital (Phenobarbital) 64.8 mg PO Q6H [facility]; Taper Stop: 11/20/19 07:59 Last Admin: 11/18/19 13:13 Dose: 64.8 mg Documented by: Sodium Chloride () 10 - 40 ml IV UD PRN PRN Reason: SALINE FLUSH Thiamine HCl (Vitamin B1) 100 mg PO DAILYCM [facility] Last Admin: 11/18/19 07:44 Dose: 100 mg Documented by: Throat Lozenges (Cepacol Sore Throat Lozenge) 1 lozenge MUCOUS MEM Q2H PRN PRN PRN Reason: cough/sore throat Last Admin: 11/18/19 07:57 Dose: 1 lozenge Documented by: Trazodone HCl (Desyrel) 100 mg PO QHS PRN PRN Reason: INSOMNIA Last Admin: 11/17/19 22:34 Dose: 100 mg Documented by: Inpatient E&M: [id number] Disch Hosp
--- NOTE | 2019-11-18 12:57 | ADDICTION ---
This freelance writer met with patient in her room to assess patient's ASAM dimensions and to discuss discharge planning. [facility] and states that she has been working with her supervisor fine grading [facility] on a weekly basis for individual counseling. She states that she is scheduled to start Intensive Outpatient Treatment on 11/25/2019 and has an individual session scheduled for 11/22/2019. She is requesting [facility] services with [facility] and is scheduled to be seen on 11/26/2019 per [facility] nurse. This freelance writer spoke with charge nurse and patient's nurse regarding contacting the physician for Naltrexone prescription to sustain patient until she is able to be seen by [facility]/ [facility]. This freelance writer was informed by charge nurse that physician and physician's podiatry assistant refused to prescribe Naltrexone to this patient. [facility] department has been notified and is working on scheduling patient with an earlier appointment, if possible. [facility] LOC 2.1 Intensive Outpatient Services Dimension1: Acute Withdrawal and/or Withdrawal Potential Patient reports last date of alcohol use was 11/15/2019. She is scheduled to complete medical withdrawal management with [facility] today and has been given Phenobarbital. She reports a history of severe withdrawal symptoms, including high blood pressure and also reports that she has experienced tremors, sweating, hot/cold flashes, vomiting and fatigue, during active withdrawal. Dimension2: Biomedical Conditions and Complications Patient reports COPD diagnosis- no other [facility]/C reported. Dimension3: Emotional, Behavioral, Cognitive Conditions and Complications E: Patient is a current patient of [facility] and has established counselor. She presented with euthymic mood broad affect. She appears to have no barriers related to emotion regulation. B: Patient reports no SI/HI or history of self-harm. She has been historically compliant with recommendations. She is willing to continue with outpatient, engage in IOP and MAT. C: Patient was alert/oriented x4. Appeared to understand meeting conversation. Dimension4: Readiness to Change patient presents in the preparation stage of change as evidenced by her identification of problem behaviors with verbalized plans to engage in ongoing, AoD related services upon discharge from [facility]. SHe appears internally motivated and has a history of successful completion of IOP. Dimension5: Relapse, Continued Use or Continued Problem Potential Patient reports a history of relapse following treatment completion. She states that she plans to engage in MAT for Vivitrol and IOP for support and to gain coping and relapse prevention skills. She plans to engage in individual counseling. Patient reports willingness to avoid problem people, places and things and was able to effectively identify problem people, places and things. Dimension6: Recovery/Living Environment Patient reports independent living. She states that her living environment is safe, supportive and sober. Patient states that she plans to continue with mutual aid meets, working with peer support, and working with [facility] for treatment. She reports no current legal involvement.
[2019-11-18 13:37] VITALS: BP 110/68; PULSE 74; RESP 16; TEMP 26.6; O2SAT 98
== END 2019-11-18 13:51 | disposition home or self-care (01) | DRG 775 ==
LOC: ED 19:44 → MS3 11-16 02:43
PROVIDERS: Emergency Provider Emergency Medicine; PCP Internal Medicine; Visit Provider Internal Medicine
DX: F10.239 Alcohol dependence with withdrawal, unspecified (principal); J44.9 Chronic obstructive pulmonary disease, unspecified; F17.210 Nicotine dependence, cigarettes, uncomplicated; Z79.51 Long term (current) use of inhaled steroids; Z79.899 Other long term (current) drug therapy
CPT/HCPCS: 80053; 80307; 80320; 81001; 81025; 85025; 93005; 94640; 96360; 99284; 99406; J7030; A4216; G0480

== ENCOUNTER → 2020-01-26 12:07 | Outpatient (CLI) | payer MEDICAID, SELFPAY ==
[2019-11-15 21:25] VITALS: BMI 26.1
[2020-01-26 13:29] LABS: Probe Check PASS; Specimen Processing Control PASS
== END ==
PROVIDERS: PCP Internal Medicine; Visit Provider Internal Medicine
DX: R50.9 Fever, unspecified (principal); R05 Cough
CPT/HCPCS: 87635; 94799; U0003

== ENCOUNTER 2020-08-15 21:35 | Inpatient (IN) | payer MEDICAID, SELFPAY ==
[2019-11-15 21:25] VITALS: BMI 26.1
[2020-08-15 21:35] VITALS: BP 150/104; PULSE 90; RESP 16; TEMP 36.7; O2SAT 99; BMI 25.2
--- NOTE | 2020-08-15 22:05 | ED.DCSUM_ITS ---
History of Present Illness Chief Complaint: Substance Abuse Narrative: Patient is presenting requesting alcohol detox. Patient states that the last time she went through alcohol detox was back in October, she had about 6 months of sobriety and then relapsed. Patient states that she will drink around 4 tall boys per day usually but states that in the last 24 hours she has been binging because she planned on coming in for detox and getting off of alcohol altogether. Last drink was about 20 minutes prior to arrival. She denies any other coingestants such as benzodiazepines or opiates. No prior history of withdrawal seizures. Patient denies being suicidal or homicidal. View of systems otherwise negative. Past Medical History - Allergies and Home Meds Allergies/Adverse Reactions: Allergies No Known Allergies Allergy (Verified 11/15/19 18:51) Primary Care Physician: Beatrice Gonzalez DO [Primary Care Provider] - Prior records reviewed: Yes Past Medical History: - - Prior history of alcohol abuse Surgical History: noncontributory Smoking Status: Current every day smoker Alcohol: Heavy Drugs: None - Family History Maternal Family History: Reports: No pertinent history, - Review of Systems All systems negative except as indicated General: Denies: Chills, Fever, Sweats Eyes: Denies: Visual changes - bilaterally, Diplopia ENT: Denies: Rhinorrhea, Sore throat Cardiovascular: Denies: Chest pain, Palpitations Respiratory: Denies: Dyspnea, Cough, Dyspnea on exertion Gastrointestinal: Denies: Abdominal pain, Nausea, Vomiting, Diarrhea, Melena, Hematochezia Genitourinary: Denies: Dysuria, Hematuria, Frequency Musculoskeletal: Denies: Back pain, Extremity Pain Skin: Denies: Rash, Wounds Neurological: Denies: Headache, Weakness, Numbness Psych: Reports: - - Alcohol intoxication Physical Exam Vital Signs/Narrative: Vital Signs Temp Pulse Resp BP Pulse Ox 08/15/20 21:35 98.1 F 90 16 150/104 H 99 Inital Vital Signs reviewed: Yes General: Well nourished, Well developed Head: Normocephalic, Atraumatic Eyes: Perrl, EOMI ENT: Moist mucous membranes, No rhinorrhea Neck: Supple, Nontender Cardiovascular: Regular rate, Regular rhythm, No murmurs Respiratory: No distress, CTA bilaterally, Chest nontender Abdomen: Soft, Nontender, Nondistended, Normal bowel sounds Back: Nontender, Normal Inspection Extremities: Nontender, No Edema Skin: Normal color, No rash Neurological: Alert, Oriented x3, Cranial nerves II-XII grossly intact, Normal Strength, Normal Sensation, - - Patient is slurring her speech consistent with alcohol intoxication but has no lateralizing neurological deficits Psych: Normal Speech Pattern, Logical sequential goal directed thoughts, Depressed. Negative for: Suicidal thoughts, Homicidal thoughts Diagnostic/Tx/Re-eval Laboratory Data 08/15/20 08/15/20 08/15/20 21:55 22:25 22:25 WBC 7.6 RBC 4.36 Hgb 13.3 Hct 38.3 MCV 87.8 MCH 30.5 MCHC 34.7 RDW Std Deviation 43.1 RDW Coeff of Fortino 14.0 Plt Count 186 MPV 10.0 Immature Gran % (Auto) 0.700 Neut % (Auto) 47.7 Lymph % (Auto) 42.0 H Stephens % (Auto) 7.3 Eos % (Auto) 1.5 Baso % (Auto) 0.8 Absolute Neuts (auto) 3.6 Absolute Lymphs (auto) 3.17 Nucleated RBC % 0 Sodium 140 Potassium 3.4 L Chloride 107 Carbon Dioxide 27.0 Anion Gap 6 BUN 10 Creatinine 0.66 Estim Creat Clear Calc 99.17 Est GFR (MDRD) Af Amer 123 Est GFR (MDRD) Non-Af 101 BUN/Creatinine Ratio 15.2 Glucose 95 Calcium 8.1 L Total Bilirubin 0.20 AST 91 H ALT 92 H Alkaline Phosphatase 111 Total Protein 6.9 Albumin 3.4 Globulin 3.5 Albumin/Globulin Ratio 1.0 Urine Opiates Screen NEGATIVE Urine Methadone Screen NEGATIVE Ur Barbiturates Screen NEGATIVE Ur Phencyclidine Scrn NEGATIVE Ur Amphetamines Screen NEGATIVE U Methamphetamin-MDMA NEGATIVE U Benzodiazepines Scrn NEGATIVE Urine Cocaine Screen NEGATIVE U Cannabinoids Screen NEGATIVE Ur Drug Screen Comment Patient presented for alcohol detox. Patient screening labs not found to be significantly abnormal. Patient was loaded with phenobarbital. She remained stable in the emergency department. Patient will be admitted for inpatient detox. ED Disposition - Plan for ED Patient: Disposition: Acute Care Hospital [facility] Diagnosis: Alcohol dependence
[2020-08-15] MEDS: Phenobarbital 32.4 MG Tablet 97.2 MG PO (22:11)
[2020-08-15 22:23] VITALS: BP 118/84; PULSE 86; RESP 16; TEMP 36.1; O2SAT 98
[2020-08-15 22:32] LABS: Absolute Lymphocyte Count 3.17 X10^3/uL (0.83-4.51); Absolute Neutrophil Count 3.6 X10^3/uL (2.0-7.7); Basophil# 0.06 X10^3/uL; Basophil% 0.8 % (0-1); Eosinophil# 0.11 X10^3/uL; Eosinophils% 1.5 % (0-5); Hematocrit 38.3 % (37-47); Hemoglobin 13.3 g/dL (12.0-15.0); Lymphocyte # 3.17 X10^3/ul (4.0); Mean Corp Hgb Conc 34.7 g/dL (32-36); Mean Corpuscular Hgb 30.5 pg (27.0-32.0); Mean Corpuscular Volume 87.8 fL (81-99); Monocyte# 0.55 X10^3/uL; Monocyte% 7.3 % (0-10); NRBC Flagged by Analyzer 0 % (0-5); Neutrophil # 3.61 X10^3/uL (2.7-7.7); Neutrophil % 47.7 % (47-70); Platelet Count 186 K/mm3 (150-450); RBC Distribution Width SD 43.1 fl (35.1-43.9); Red Blood Count 4.36 M/mm3 (4.2-5.4); White Blood Count 7.6 K/mm3 (4.4-11.0)
[2020-08-15 22:48] LABS: Amphetamine Urine VISTA NEGATIVE (<1000 ng/mL); Barbiturate Urine VISTA NEGATIVE (< 200 ng/mL); Benzodiazepine Urine VISTA NEGATIVE (< 200 ng/mL); Cocaine Urine VISTA NEGATIVE (< 300 ng/mL); Ecstacy Urine VISTA NEGATIVE (< 500 ng/mL); Methadone Urine VISTA NEGATIVE (< 300 ng/mL); PCP Urine VISTA NEGATIVE (< 25 ng/mL); THC Urine VISTA NEGATIVE (< 50 ng/mL); Vista UDS pH Range 6
[2020-08-15 22:53] LABS: AST(SGOT) 91 U/L (15-37); Alanine Aminotransfer ALT/SGPT 92 U/L (13-56); Albumin, Serum 3.4 g/dL (3.2-5.0); Alkaline Phosphatase 111 U/L (45-117); Anion Gap 6 (5-15); BUN 10 mg/dL (7-18); BUN/Creat Ratio 15.2 RATIO (10-20); Calcium,Total 8.1 mg/dL (8.5-10.1); Chloride 107 mmol/L (98-107); Creatinine, Serum 0.66 mg/dL (0.55-1.02); EST Glomerular Filtration Rate 101 mL/min (>60); Est Glom Filt Rate - Afr Amer 123 mL/min (>60); Estimated Creatinine Clearance 99.17 ml/min; Globulin 3.5 g/dL (2.2-4.2); Glucose 95 mg/dL (74-106); Potassium 3.4 mmol/L (3.5-5.1); Protein, Total 6.9 g/dL (6.4-8.2); Sodium Level 140 mmol/L (136-145)
--- NOTE | 2020-08-15 23:17 | HP.PCM_ITS ---
History of Present Illness Date of Admission: 08/15/20 Chief Complaint: acute alcohol withdrawal The patient is a 50 year old F with a PMH as outlined which includes chronic alcohol abuse and nicotine dependence. She was admitted via the ED on 08/15/2020 for acute alcohol withdrawal. Her last drink was about 20 mins prior to admission, and she usually drinks 4 tall boys daily. She last went through detox in October 2019 but states she subsequently fell off the wagon afterwards. She denies any other drug use and has not had any history of seizures. Review of systems otherwise negative. Vitals in the ED showed temperature of 97 Fahrenheit with blood pressure 118/84, pulse rate of 86 and respiratory rate of 16. She was saturating 98% on room air. Chemistry showed sodium of 140 with potassium of 3.4 and AST of 91 as well as ALT of 92. CBC was unremarkable. She has been admitted to be managed for acute alcohol withdrawal. Urine tox was negative and serum alcohol level was pending. She has been admitted to be managed for acute alcohol withdrawal. [] Past Medical History Medical History: Medical History (Last Updated 11/15/19 @ 20:[address] Riccardo Malik, DO) Alcoholism /alcohol abuse F10.20 COPD (chronic obstructive pulmonary disease) J44.9 Allergies No Known Allergies Allergy (Verified 11/15/19 18:51) Home Medications: Ambulatory Orders Medication Instructions Recorded Budesonide/Formoterol Fumarate 2 puff INHALATION DAILY 11/15/19 [Symbicort 160-4.5 Mcg Inhaler] traZODone [Desyrel] 100 mg PO QHS PRN 11/15/19 Nicotine [Nicotine Patch] 21 mg TD DAILY #14 patch.td24 11/18/19 Surgical History: noncontributory Lives: Alone Smoking Status: Heavy Smoker (>10/day) Alcohol: Heavy Drugs: None - *Family History Maternal History Items: No pertinent history, - Review of Systems Constitutional: Denies: Chills, Fever, Weight Change HEENT: Denies: Head Aches, Sinus Congestion, Sinus Drainage Cardiovascular: Denies: Chest Pain, Palpitations Respiratory: Denies: Cough, Shortness of breath at rest, Sputum production Gastrointestinal: Denies: Abdominal Pain, Nausea, Vomiting Genitourinary: Denies: Dysuria Musculoskeletal: Denies: Joint Pain, Joint Tenderness Skin: Denies: Rash, Wounds Neurological: Denies: Numbness, Tingling, Focal weakness Psychiatric: Denies: Anxiety, Depression, Homicidal Ideations, Suicidal Ideations Hematologic/ Lymphatic: Denies: Easy Bruising, Easy Bleeding VTE Information - Inpt Only VTE Present on Admission: No VTE Pharm Prophylaxis ordered?: Yes - Physical Exam Vitals/I&O's: Vital Signs Temp Pulse Resp BP Pulse Ox 97.0 F L 86 16 118/84 H 98 08/15/20 22:23 08/15/20 22:23 08/15/20 22:23 08/15/20 22:23 08/15/20 22:23 Oxygen Delivery Method Room Air Weight: 161 lb 6.054 oz Body Mass Index (BMI) 25.2 General: Alert, Oriented x3, Cooperative HEENT: Atraumatic, PERRLA, EOMI, Normocephalic Neck: Supple, No JVD, Negative Carotid Bruits Lungs: Clear to auscultation, Normal air movement Cardiovascular: Regular rate, Regular Rhythm, Normal S1, Normal S2, No murmurs Abdomen: Bowel Sounds Present, Soft, Non Tender Extremities: No edema, Capillary Refill Less than 3 Seconds Skin: No rashes, No breakdown Musculoskeletal: No Tenderness to Palpation of Joints or Extremities Neurological: Cranial nerves II-XII grossly intact, Neuro grossly intact, Motor Exam 5/5 strength throughout Psych/Mental Status: Normal Affect, Appropriate, Alert and oriented to time, place, person, mood and affect Laboratory Results 08/15/20 21:55: Urine Opiates Screen NEGATIVE, Urine Methadone Screen NEGATIVE, Ur Barbiturates Screen NEGATIVE, Ur Phencyclidine Scrn NEGATIVE, Ur Amphetamines Screen NEGATIVE, U Methamphetamin-MDMA NEGATIVE, U Benzodiazepines Scrn NEGATIVE, Urine Cocaine Screen NEGATIVE, U Cannabinoids Screen NEGATIVE, Ur Drug Screen Comment 08/15/20 22:25: WBC 7.6, RBC 4.36, Hgb 13.3, Hct 38.3, MCV 87.8, MCH 30.5, MCHC 34.7, RDW Std Deviation 43.1, RDW Coeff of Fortino 14.0, Plt Count 186, MPV 10.0, Immature Gran % (Auto) 0.700, Neut % (Auto) 47.7, Lymph % (Auto) 42.0 H, Wagoner % (Auto) 7.3, Eos % (Auto) 1.5, Baso % (Auto) 0.8, Absolute Neuts (auto) 3.6, Absolute Lymphs (auto) 3.17, Nucleated RBC % 0 08/15/20 22:25: Sodium 140, Potassium 3.4 L, Chloride 107, Carbon Dioxide 27.0, Anion Gap 6, BUN 10, Creatinine 0.66, Estim Creat Clear Calc 99.17, Est GFR (MDRD) Af Amer 123, Est GFR (MDRD) Non-Af 101, BUN/Creatinine Ratio 15.2, Glucose 95, Calcium 8.1 L, Total Bilirubin 0.20, AST 91 H, ALT 92 H, Alkaline Phosphatase 111, Total Protein 6.9, Albumin 3.4, Globulin 3.5, Albumin/Globulin Ratio 1.0 08/15/20 22:25: Ethyl Alcohol Pending Assessment/Plan All Active Problems (Last Updated 11/15/19 @ 20:[address] Riccardo Malik, DO) Alcohol withdrawal (Acute) 50y/o admitted with a complaint of acute alcohol withdrawal #Acute alcohol withdrawal * admit to med surg * monitor CIWA score * put on alcohol withdrawal protocol with phenobarbital * thiamine, folic acid and multivites * #Nicotine dependence: nicotine 21mg daily. Counseled to quit DVT prophylaxis; SCDs Inpatient E&M: [id number] Init Hosp L3
[2020-08-15 23:19] VITALS: BP 108/53; PULSE 86; RESP 15; TEMP 36.7; O2SAT 97
--- NOTE | 2020-08-15 23:21 | ED.RN ---
ALCOHOL OF 363 REPORTED TO . VERBALIZES UNDERSTANDING
[2020-08-15 23:24] VITALS: BP 108/53; PULSE 86; RESP 15; TEMP 36.7; O2SAT 97
[2020-08-16] VITALS (8 sets, daily range): BP systolic 100–141; BP diastolic 58–74; PULSE 79–113; RESP 16–18; TEMP 36.2–37.2; O2SAT 94–98; BMI 24.6; BMI 24.7
[2020-08-16] MEDS: Phenobarbital 32.4 MG Tablet PO ×5 (01:04→20:33)
[2020-08-16] MEDS: LORazepam 1 MG Tablet PO ×5 (01:04→20:33)
[2020-08-16 01:14] LABS: Magnesium 2.2 mg/dL (1.6-2.6)
[2020-08-16 05:52] LABS: Anion Gap 7 (5-15); BUN 10 mg/dL (7-18); BUN/Creat Ratio 16.6 RATIO (10-20); Calcium,Total 7.5 mg/dL (8.5-10.1); Chloride 110 mmol/L (98-107); EST Glomerular Filtration Rate 112 mL/min (>60); Est Glom Filt Rate - Afr Amer 135 mL/min (>60); Estimated Creatinine Clearance 109.08 ml/min; Glucose 92 mg/dL (74-106); Potassium 3.7 mmol/L (3.5-5.1); Sodium Level 144 mmol/L (136-145)
[2020-08-16] MEDS: Folic Acid 1 MG Tablet PO (08:18)
[2020-08-16] MEDS: Multivitamins,Ther W-Minerals Tablet 1 TABLET PO (08:19)
[2020-08-16] MEDS: Thiamine Hydrochloride 100 MG Tablet PO ×2 (08:19→16:47)
[2020-08-16 09:02] LABS: Mucous, Urine 0 SEEN /hpf (<or=2+); Red Blood Cells-Urine 0 SEEN /hpf (0-5); White Blood Cells 0 SEEN /hpf (0-5)
[2020-08-16 09:05] LABS: Color, Urine Yellow (Yellow); Glucose, Dipstick Normal (Normal); Ketone-Dipstick Negative (Negative); Leukocyte Esterase-Dipstick Negative /ul (Negative); Nitrite-Dipstick Negative (Negative); Occult Blood-Urine 10 /ul (Negative); Protein-Dipstick Negative (Negative); Urine Bilirubin Dipstick Negative (Negative); Urine Clarity Clear (Clear); Urine Urobilinogen Normal (Normal)
[2020-08-16 09:14] LABS: Bacteria 1+ /hpf (None Seen); Squamous Epithelial Cells - UA 5-10 SEEN /hpf (5-10)
[2020-08-16] MEDS: Ciprofloxacin 500 MG Tablet PO ×2 (13:41→21:08)
--- NOTE | 2020-08-16 16:35 | PN_ITS ---
Patient Problems: Active and Suspected Problems (Last Updated 11/15/19 @ 20:[address] Riccardo Malik, DO) Alcohol dependence (Acute) Subjective: Patient was seen and examined today, she does not complain of any severe anxiety or nervousness today. She states that recently she did not complete her injection of Vivitrol and she thinks this may have caused her to relapse with her alcoholism. - Physical Exam Vitals/I&O's: Vital Signs Temp Pulse Resp BP Pulse Ox 99 F 113 H 16 128/66 H 94 08/16/20 14:50 08/16/20 14:50 08/16/20 14:50 08/16/20 14:50 08/16/20 14:50 Oxygen Delivery Method Room Air Weight: 71.4 kg Body Mass Index (BMI) 24.6 Intake and Output for Last 24 Hours 08/14/20 08/15/20 08/16/20 23:59 23:59 23:59 Intake Total 950 / 950 Balance 950 / 950 General: Alert, Oriented x3, Cooperative, No apparent distress, Well developed, Well nourished HEENT: Atraumatic, PERRLA, EOMI, Normocephalic Oral: Moist Mucosa Neck: Supple, No JVD, Trachea Midline, Thyroid Normal Size and Texture Lungs: Clear to auscultation, Normal air movement Cardiovascular: Regular rate, Regular Rhythm, Normal S1, Normal S2, No murmurs, PMI Normal, No rub noted, No Gallop Abdomen: Bowel Sounds Present, Soft, Non Tender, Non-Distended Extremities: No clubbing, No cyanosis, No edema, Capillary Refill Less than 3 Seconds Skin: No rashes, No breakdown Musculoskeletal: No Tenderness to Palpation of Joints or Extremities Neurological: Cranial nerves II-XII grossly intact, Neuro grossly intact, Sensory exam intact to light touch and pain, Coordination normal Psych/Mental Status: Normal Affect, Appropriate, Alert and oriented to time, place, person, mood and affect Laboratory Results 08/15/20 20:25: Magnesium 2.2 08/15/20 21:55: Urine Opiates Screen NEGATIVE, Urine Methadone Screen NEGATIVE, Ur Barbiturates Screen NEGATIVE, Ur Phencyclidine Scrn NEGATIVE, Ur Amphetamines Screen NEGATIVE, U Methamphetamin-MDMA NEGATIVE, U Benzodiazepines Scrn NEGATIVE, Urine Cocaine Screen NEGATIVE, U Cannabinoids Screen NEGATIVE, Ur Drug Screen Comment 08/15/20 22:25: WBC 7.6, RBC 4.36, Hgb 13.3, Hct 38.3, MCV 87.8, MCH 30.5, MCHC 34.7, RDW Std Deviation 43.1, RDW Coeff of Fortino 14.0, Plt Count 186, MPV 10.0, Immature Gran % (Auto) 0.700, Neut % (Auto) 47.7, Lymph % (Auto) 42.0 H, [place] % (Auto) 7.3, Eos % (Auto) 1.5, Baso % (Auto) 0.8, Absolute Neuts (auto) 3.6, Absolute Lymphs (auto) 3.17, Nucleated RBC % 0 08/15/20 22:25: Sodium 140, Potassium 3.4 L, Chloride 107, Carbon Dioxide 27.0, Anion Gap 6, BUN 10, Creatinine 0.66, Estim Creat Clear Calc 99.17, Est GFR (MDRD) Af Amer 123, Est GFR (MDRD) Non-Af 101, BUN/Creatinine Ratio 15.2, Glucose 95, Calcium 8.1 L, Total Bilirubin 0.20, AST 91 H, ALT 92 H, Alkaline Phosphatase 111, Total Protein 6.9, Albumin 3.4, Globulin 3.5, Albumin/Globulin Ratio 1.0 08/15/20 22:25: Ethyl Alcohol 363.0 H* 08/16/20 04:55: Sodium 144, Potassium 3.7, Chloride 110 H, Carbon Dioxide 27.0, Anion Gap 7, BUN 10, Creatinine 0.60, Estim Creat Clear Calc 109.08, Est GFR (MDRD) Af Amer 135, Est GFR (MDRD) Non-Af 112, BUN/Creatinine Ratio 16.6, Glucose 92, Calcium 7.5 L 08/16/20 08:55: Urine Color Yellow, Urine Clarity Clear, Urine pH 6.0, Ur Specific [place] 1.020, Urine Protein Negative, Urine Glucose (UA) Normal, Urine Ketones Negative, Urine Occult Blood 10 H, Urine Nitrite Negative, Urine Bilirubin Negative, Urine Urobilinogen Normal, Ur Leukocyte Esterase Negative, Urine RBC 0 SEEN, Urine WBC 0 SEEN, Ur Squamous Epith Cells 5-10 SEEN, Urine Bacteria 1+, Urine Mucus 0 SEEN Current Medications Ciprofloxacin HCl (Ciprofloxacin 500 Mg Tablet) 500 mg PO BID [facility] Stop: 08/19/20 22:01 Last Admin: 08/16/20 13:41 Dose: 500 mg Documented by: Folic Acid (Folic Acid 1 Mg Tablet) 1 mg PO DAILY@0800 [facility] Stop: 08/18/20 08:01 Last Admin: 08/16/20 08:18 Dose: 1 mg Documented by: Loperamide HCl (Loperamide 2 Mg Capsule) 2 mg PO Q4H PRN PRN PRN Reason: LOOSE STOOLS Lorazepam (Lorazepam 1 Mg Tablet) 2 mg PO Q2H PRN PRN; Protocol PRN Reason: CIWA score > 8 but <15 Lorazepam (Lorazepam 1 Mg Tablet) 2 mg PO UD PRN; Protocol PRN Reason: CIWA score >/=15. Lorazepam (Lorazepam 2 Mg/Ml Syringe) 2 mg IV Q2H PRN PRN; Protocol PRN Reason: CIWA score > 8 but <15 Lorazepam (Lorazepam 2 Mg/Ml Syringe) 2 mg IV UD PRN; Protocol PRN Reason: CIWA score >/=15. Lorazepam (Lorazepam 1 Mg Tablet) 2 mg PO Q4H [facility]; Taper Stop: 08/20/20 08:59 Last Admin: 08/16/20 12:21 Dose: 2 mg Documented by: Multivitamins/Minerals (Multivitamins,Ther W-Minerals Tablet) [facility] Last Admin: 08/16/20 08:19 Dose: 1 tablet Documented by: Nicotine (Nicotine 21 Mg Patch) 21 mg TD DAILY [facility] Last Admin: 08/16/20 08:50 Dose: 21 mg Documented by: Ondansetron HCl (Ondansetron 8 Mg Tablet) 8 mg PO Q8H PRN PRN PRN Reason: NAUSEA Phenobarbital (Phenobarbital 32.4 Mg Tablet) 97.2 mg PO Q4H [facility]; Taper Stop: 08/20/20 08:59 Last Admin: 08/16/20 12:21 Dose: 97.2 mg Documented by: Sodium Chloride (0.9% Saline Lock 10 Ml Syringe) 10 - 40 ml IV UD PRN PRN Reason: SALINE FLUSH Thiamine HCl (Thiamine Hydrochloride 100 Mg Tablet) [facility] Stop: 08/18/20 17:01 Last Admin: 08/16/20 08:19 Dose: 100 mg Documented by: Trazodone HCl (Trazodone 100 Mg Tablet) 100 mg PO QHS PRN PRN PRN Reason: INSOMNIA Medical Necessity - Tobacco Use Smoking Status: Heavy Smoker (>10/day) Tobacco Use: Cigarettes Assessment/Plan All Active Problems (Last Updated 11/15/19 @ 20:[address] Riccardo Malik, DO) Alcohol withdrawal (Acute) Alcohol dependence (Acute) #1 acute alcohol withdrawal-continue present medication #2 chronic alcoholism-patient states that she would like to go to an inpatient rehab program, I will be talking to [facility] social service tomorrow, patient does not feel that the program at [facility] is suited for her and she would like to go elsewhere for inpatient alcohol rehab services. Inpatient E&M: 81526 Subs Hosp L2
[2020-08-16] MEDS: Loperamide 2 MG Capsule PO (16:44)
[2020-08-17] MEDS: traZODone 100 MG Tablet PO ×2 (00:12→22:14)
[2020-08-17] MEDS: LORazepam 1 MG Tablet PO (00:16)
[2020-08-17] MEDS: Phenobarbital 32.4 MG Tablet PO ×5 (00:16→20:38)
[2020-08-17 02:24] VITALS: BP 118/72; PULSE 79; RESP 18; TEMP 37; O2SAT 93
[2020-08-17 09:00] VITALS: BP 142/88; PULSE 94; RESP 16; TEMP 36.5; O2SAT 93
[2020-08-17] MEDS: Ciprofloxacin 500 MG Tablet PO ×2 (09:10→21:26)
[2020-08-17] MEDS: Folic Acid 1 MG Tablet PO (09:10)
[2020-08-17] MEDS: Thiamine Hydrochloride 100 MG Tablet PO ×2 (09:10→17:04)
[2020-08-17] MEDS: Multivitamins,Ther W-Minerals Tablet 1 TABLET PO (09:11)
--- NOTE | 2020-08-17 10:23 | ADDICTION ---
This insurance underwriter sales met with PT in her room to complete ASAM, MSE, and AUDIT assessments and to begin planning for d/c. Assessments started and will be completed at next visit as PT reported that she was feeling disoriented due to medication. PT interested in Residential treatment. This insurance underwriter sales will compile information about residential treatment facilities and will supply PT with this documentation. PT amiable to this plan.
[2020-08-17 13:15] VITALS: BP 141/90; PULSE 109; RESP 16; TEMP 36.8; O2SAT 96
[2020-08-17] MEDS: LORazepam 1 MG Tablet 2 MG PO (13:17)
--- NOTE | 2020-08-17 16:46 | CHAPLAIN ---
Type of Pastoral Visit _x__ Initial Visit ___ Follow-up Visit ___ On-call Visit ___ General Patient Visit ___ Spiritual Assessment ___ Family Conference ___ Bereavement ___ Rapid Response ___ Code Blue ___ Other (describe below) Pastoral Care Referral From _x__ Patient ___ Family ___ Nurse ___ Physician ___ Gold Marker ___ Pantographer ___ Other (describe below) Sacrament/Intervention _x__ Active listening ___ Anointing ___ Episcopal ___ Bereavement ___ Communion _x__ Sally exploration ___ _x__ Life review _x__ Prayer ___ Reconciliation ___ Sacrament of Sick _x__ Supportive presence ___ Wedding ___ Other (describe below) Pastoral Comments patient is tearful and gives much background information on her situation; pt states that she is a Sikhism and knows better/what to do, but has struggled with doing the right thing; pt states that she has great support and attends [employer] when she is living in [place] which is a great anabaptist that I love and is so helpful to me; pt would like some inspirational material to read which was later brought to her; pt wanted prayer support
[2020-08-17 17:03] VITALS: BP 135/63; PULSE 94; RESP 16; TEMP 36.9; O2SAT 98
--- NOTE | 2020-08-17 18:21 | PN_ITS ---
Patient Problems: Active and Suspected Problems (Last Updated 11/15/19 @ 20:[address] Riccardo Malik, DO) Alcohol dependence (Acute) Subjective: Patient was seen and examined today, she does not complain of nervousness or tremor, she has no complaints of any muscle pain. She talked to [facility] today about inpatient residential rehab, arrangements are going to be made for this. Patient remains on phenobarbital taper, she had been receiving benzodiazepines also and I stopped these today. - Physical Exam Vitals/I&O's: Vital Signs Temp Pulse Resp BP Pulse Ox 98.5 F 94 16 135/63 H 98 08/17/20 17:03 08/17/20 17:03 08/17/20 17:03 08/17/20 17:03 08/17/20 17:03 Oxygen Delivery Method Room Air Weight: 71.4 kg Body Mass Index (BMI) 24.6 Intake and Output for Last 24 Hours 08/15/20 08/16/20 08/17/20 23:59 23:59 23:59 Intake Total 1600 / 2100 1250 / 1250 Balance 1600 / 2100 1250 / 1250 General: Alert, Oriented x3, Cooperative, No apparent distress, Well developed, Well nourished HEENT: Atraumatic, PERRLA, EOMI, Normocephalic Oral: Moist Mucosa Neck: Supple, No JVD, Trachea Midline, Thyroid Normal Size and Texture Lungs: Clear to auscultation, Normal air movement, No rhonchi, No wheeze, No rales Cardiovascular: Regular rate, Regular Rhythm, Normal S1, Normal S2, No murmurs, PMI Normal, No rub noted, No Gallop Abdomen: Bowel Sounds Present, Soft, Non Tender, Non-Distended Extremities: No clubbing, No cyanosis, No edema, Capillary Refill Less than 3 Seconds Skin: No rashes, No breakdown Musculoskeletal: No Tenderness to Palpation of Joints or Extremities Neurological: Cranial nerves II-XII grossly intact, Neuro grossly intact, Sensory exam intact to light touch and pain Psych/Mental Status: Normal Affect, Appropriate, Alert and oriented to time, place, person, mood and affect Microbiology Past 72 Hours 08/16/20 08:55 Urine, Clean Catch Urine Culture - Final Presumptive Lactobacillus sp. Mixed Gram Positive Organisms Current Medications Ciprofloxacin HCl (Ciprofloxacin 500 Mg Tablet) 500 mg PO BID [facility] Stop: 08/19/20 22:01 Last Admin: 08/17/20 09:10 Dose: 500 mg Documented by: Folic Acid (Folic Acid 1 Mg Tablet) 1 mg PO DAILY@0800 [facility] Stop: 08/18/20 08:01 Last Admin: 08/17/20 09:10 Dose: 1 mg Documented by: Loperamide HCl (Loperamide 2 Mg Capsule) 2 mg PO Q4H PRN PRN PRN Reason: LOOSE STOOLS Last Admin: 08/16/20 16:44 Dose: 2 mg Documented by: Lorazepam (Lorazepam 1 Mg Tablet) 2 mg PO Q2H PRN PRN; Protocol PRN Reason: CIWA score > 8 but <15 Last Admin: 08/17/20 13:17 Dose: 2 mg Documented by: Lorazepam (Lorazepam 1 Mg Tablet) 2 mg PO UD PRN; Protocol PRN Reason: CIWA score >/=15. Lorazepam (Lorazepam 2 Mg/Ml Syringe) 2 mg IV Q2H PRN PRN; Protocol PRN Reason: CIWA score > 8 but <15 Lorazepam (Lorazepam 2 Mg/Ml Syringe) 2 mg IV UD PRN; Protocol PRN Reason: CIWA score >/=15. Multivitamins/Minerals (Multivitamins,Ther [facility]als [facility]t) [facility] Last Admin: 08/17/20 09:11 Dose: 1 tablet Documented by: Nicotine (Nicotine 21 Mg Patch) 21 mg TD DAILY [facility] Last Admin: 08/17/20 09:11 Dose: 21 mg Documented by: Ondansetron HCl (Ondansetron 8 Mg Tablet) 8 mg PO Q8H PRN PRN PRN Reason: NAUSEA Phenobarbital (Phenobarbital 32.4 Mg Tablet) 64.8 mg PO Q4H [facility]; Taper Stop: 08/20/20 08:59 Last Admin: 08/17/20 17:04 Dose: 64.8 mg Documented by: Sodium Chloride (0.9% Saline Lock 10 Ml Syringe) 10 - 40 ml IV UD PRN PRN Reason: SALINE FLUSH Thiamine HCl (Thiamine Hydrochloride 100 Mg Tablet) 100 mg PO BIDCM [facility] Stop: 08/18/20 17:01 Last Admin: 08/17/20 17:04 Dose: 100 mg Documented by: Trazodone HCl (Trazodone 100 Mg Tablet) 100 mg PO QHS PRN PRN PRN Reason: INSOMNIA Last Admin: 08/17/20 00:12 Dose: 50 mg Documented by: Medical Necessity - Tobacco Use Smoking Status: Heavy Smoker (>10/day) Tobacco Use: Cigarettes Assessment/Plan All Active Problems (Last Updated 11/15/19 @ 20:[address] Riccardo Malik, DO) Alcohol withdrawal (Acute) Alcohol dependence (Acute) #1 acute alcohol withdrawal-continue present medication #2 chronic alcoholism-arrangements are going to be made for the patient to go into an inpatient alcohol detox program. Inpatient E&M: 57581 Subs Hosp L2
[2020-08-17 20:36] VITALS: BP 146/91; PULSE 93; RESP 16; TEMP 36.6; O2SAT 97
[2020-08-17] MEDS: Loperamide 2 MG Capsule PO (22:14)
[2020-08-18 01:17] VITALS: BP 127/63; PULSE 81; RESP 16; TEMP 36.6; O2SAT 96
[2020-08-18] MEDS: Phenobarbital 32.4 MG Tablet PO ×5 (01:18→20:15)
[2020-08-18 05:31] VITALS: BP 137/81; PULSE 80; RESP 16; TEMP 36.6; O2SAT 95
--- NOTE | 2020-08-18 08:10 | PN_ITS ---
Patient Problems: Active and Suspected Problems (Last Updated 11/15/19 @ 20:[address] Riccardo Malik, DO) Alcohol dependence (Acute) Reason for Visit: Follow-up on acute alcohol withdrawal Subjective: Patient was seen and examined. She feels emotional today. She has been seen by the [facility] social professionals. Discharge to inpatient facility is pending. No other events overnight. Objective: Physical exam: General: Alert, Oriented x3, Cooperative HEENT: Atraumatic, PERRLA, EOMI, Normocephalic Neck: Supple, No JVD, Negative Carotid Bruits Lungs: Clear to auscultation, Normal air movement Cardiovascular: Regular rate, Regular Rhythm, Normal S1, Normal S2, No murmurs Abdomen: Bowel Sounds Present, Soft, Non Tender Extremities: No edema, Capillary Refill Less than 3 Seconds Skin: No rashes, No breakdown Musculoskeletal: No Tenderness to Palpation of Joints or Extremities Neurological: Cranial nerves II-XII grossly intact, Neuro grossly intact, Motor Exam 5/5 strength throughout Psych/Mental Status: Normal Affect, Appropriate, Alert and oriented to time, place, person, mood and affect Vitals/I&O's: Vital Signs Temp Pulse Resp BP Pulse Ox 98 F 80 16 137/81 H 95 08/18/20 05:31 08/18/20 05:31 08/18/20 05:31 08/18/20 05:31 08/18/20 05:31 Oxygen Delivery Method Room Air Weight: 71.4 kg Body Mass Index (BMI) 24.6 Intake and Output for Last 24 Hours 08/16/20 08/17/20 08/18/20 23:59 23:59 23:59 Intake Total 1599 / 2099 2350 / 2350 400 / 400 Balance 1600 / 2100 2350 / 2350 400 / 400 Microbiology Past 72 Hours 08/16/20 08:55 Urine, Clean Catch Urine Culture - Final Presumptive Lactobacillus sp. Mixed Gram Positive Organisms Current Medications Ciprofloxacin HCl (Ciprofloxacin 500 Mg Tablet) 500 mg PO BID [facility] Stop: 08/19/20 22:01 Last Admin: 08/17/20 21:26 Dose: 500 mg Documented by: Loperamide HCl (Loperamide 2 Mg Capsule) 2 mg PO Q4H PRN PRN PRN Reason: LOOSE STOOLS Last Admin: 08/17/20 22:14 Dose: 2 mg Documented by: Lorazepam (Lorazepam 1 Mg Tablet) 2 mg PO Q2H PRN PRN; Protocol PRN Reason: CIWA score > 8 but <15 Last Admin: 08/17/20 13:17 Dose: 2 mg Documented by: Lorazepam (Lorazepam 1 Mg Tablet) 2 mg PO UD PRN; Protocol PRN Reason: CIWA score >/=15. Lorazepam (Lorazepam 2 Mg/Ml Syringe) 2 mg IV Q2H PRN PRN; Protocol PRN Reason: CIWA score > 8 but <15 Lorazepam (Lorazepam 2 Mg/Ml Syringe) 2 mg IV UD PRN; Protocol PRN Reason: CIWA score >/=15. Multivitamins/Minerals (Multivitamins,Ther W-Minerals Tablet) [facility] Last Admin: 08/17/20 09:11 Dose: 1 tablet Documented by: Nicotine (Nicotine 21 Mg Patch) 21 mg TD DAILY [facility] Last Admin: 08/17/20 09:11 Dose: 21 mg Documented by: Ondansetron HCl (Ondansetron 8 Mg Tablet) 8 mg PO Q8H PRN PRN PRN Reason: NAUSEA Phenobarbital (Phenobarbital 32.4 Mg Tablet) 64.8 mg PO Q4H [facility]; Taper Stop: 08/20/20 08:59 Last Admin: 08/18/20 05:32 Dose: 64.8 mg Documented by: Sodium Chloride (0.9% Saline Lock 10 Ml Syringe) 10 - 40 ml IV UD PRN PRN Reason: SALINE FLUSH Thiamine HCl (Thiamine Hydrochloride 100 Mg Tablet) 100 mg PO BIDCM [facility] Stop: 08/18/20 17:01 Last Admin: 08/17/20 17:04 Dose: 100 mg Documented by: Trazodone HCl (Trazodone 100 Mg Tablet) 100 mg PO QHS PRN PRN PRN Reason: INSOMNIA Last Admin: 08/17/20 22:14 Dose: 100 mg Documented by: STROKE Vital Signs/Narrative: Vital Signs Temp Pulse Resp BP Pulse Ox 08/18/20 05:31 98 F 80 16 137/81 H 95 Medical Necessity - Tobacco Use Smoking Status: Heavy Smoker (>10/day) Tobacco Use: Cigarettes Assessment/Plan All Active Problems (Last Updated 11/15/19 @ 20:[address] Riccardo Malik, DO) Alcohol withdrawal (Acute) Alcohol dependence (Acute) 1. Acute alcohol withdrawal, CIWA score is 10 this morning, Continue on the phenobarbital/Ativan withdrawal protocol 2. Nicotine dependence, on replacement 3. Acute UTI, continue on Cipro po 4. DVT prophylaxis with early ambulation Inpatient E&M: 40256 Subs Hosp L2
[2020-08-18 08:23] VITALS: BP 136/83; PULSE 76; RESP 16; TEMP 36.6; O2SAT 99
[2020-08-18] MEDS: Thiamine Hydrochloride 100 MG Tablet PO ×2 (08:26→15:54)
[2020-08-18] MEDS: Ciprofloxacin 500 MG Tablet PO ×2 (08:26→22:33)
[2020-08-18] MEDS: Folic Acid 1 MG Tablet PO (08:26)
[2020-08-18] MEDS: Multivitamins,Ther W-Minerals Tablet 1 TABLET PO (08:27)
[2020-08-18] MEDS: 0.9% Saline Lock 10 ML Syringe IV ×2 (11:03→22:34)
[2020-08-18] MEDS: LORazepam 2 MG/ML Syringe IV (11:03)
--- NOTE | 2020-08-18 11:08 | ADDICTION ---
This loan underwriter met with PT in her room to administer the AUDIT, ASAM and MSE assessments and to process d/c plan. All assessments completed and faxed to [facility]. Originals placed in PT's chart. PT to directly admit into [facility] residential upon d/c from [facility]. [facility] to provide transportation.
[2020-08-18 13:52] VITALS: BP 127/68; PULSE 80; RESP 16; TEMP 36.5; O2SAT 95
[2020-08-18 15:58] VITALS: BP 155/99; PULSE 69; RESP 16; TEMP 36.4; O2SAT 98
[2020-08-18 22:32] VITALS: BP 147/86; PULSE 73; RESP 16; TEMP 36.6; O2SAT 97
[2020-08-19] MEDS: traZODone 100 MG Tablet PO ×2 (00:02→20:57)
[2020-08-19 03:55] VITALS: BP 110/46; PULSE 73; RESP 16; TEMP 36.6; O2SAT 98
[2020-08-19] MEDS: Phenobarbital 32.4 MG Tablet PO ×4 (03:56→20:57)
[2020-08-19 08:26] VITALS: BP 124/75; PULSE 74; RESP 16; TEMP 36.6; O2SAT 97
[2020-08-19] MEDS: Ciprofloxacin 500 MG Tablet PO ×2 (08:29→20:56)
[2020-08-19] MEDS: Multivitamins,Ther W-Minerals Tablet 1 TABLET PO (08:29)
--- NOTE | 2020-08-19 10:31 | ADDICTION ---
This group underwriter met with PT in her room to finalize d/c plan. PT to directly admit into [facility] following d/c from [facility] on 08/20/20. PT amiable. PT to be picked up by [facility] transportation department at 10am on 08/20/20.
[2020-08-19] MEDS: Ibuprofen 400 MG Tablet PO ×2 (12:05→17:29)
--- NOTE | 2020-08-19 14:10 | PCM.PN.HOSP ---
Patient Problems: Active and Suspected Problems (Last Updated 11/15/19 @ 20:[address] Riccardo Malik, DO) Alcohol dependence (Acute) Reason for Visit: Follow-up on acute alcohol withdrawal Subjective: Patient was seen and examined. She feels improved. Denies any fever or chills. Objective: Physical exam: General: Alert, Oriented x3, Cooperative HEENT: Atraumatic, PERRLA, EOMI, Normocephalic Neck: Supple, No JVD, Negative Carotid Bruits Lungs: Clear to auscultation, Normal air movement Cardiovascular: Regular rate, Regular Rhythm, Normal S1, Normal S2, No murmurs Abdomen: Bowel Sounds Present, Soft, Non Tender Extremities: No edema, Capillary Refill Less than 3 Seconds Skin: No rashes, No breakdown Musculoskeletal: No Tenderness to Palpation of Joints or Extremities Neurological: Cranial nerves II-XII grossly intact, Neuro grossly intact, Motor Exam 5/5 strength throughout Psych/Mental Status: Normal Affect, Appropriate, Alert and oriented to time, place, person, mood and affect Vitals/I&O's: Vital Signs Temp Pulse Resp BP Pulse Ox 97.9 F 74 16 124/75 H 97 08/19/20 08:26 08/19/20 08:26 08/19/20 08:26 08/19/20 08:26 08/19/20 08:26 Oxygen Delivery Method Room Air Weight: 71.4 kg Body Mass Index (BMI) 24.6 Intake and Output for Last 24 Hours 08/17/20 08/18/20 08/19/20 23:59 23:59 23:59 Intake Total 2350 / 2350 1800 / 1800 400 / 400 Balance 2350 / 2350 1800 / 1800 400 / 400 Microbiology Past 72 Hours 08/16/20 08:55 Urine, Clean Catch Urine Culture - Final Presumptive Lactobacillus sp. Mixed Gram Positive Organisms Current Medications Ciprofloxacin HCl (Ciprofloxacin 500 Mg Tablet) 500 mg PO BID [facility] Stop: 08/19/20 22:01 Last Admin: 08/19/20 08:29 Dose: 500 mg Documented by: Ibuprofen (Ibuprofen 400 Mg Tablet) 400 mg PO Q6 [facility] Last Admin: 08/19/20 12:05 Dose: 400 mg Documented by: Loperamide HCl (Loperamide 2 Mg Capsule) 2 mg PO Q4H PRN PRN PRN Reason: LOOSE STOOLS Last Admin: 08/17/20 22:14 Dose: 2 mg Documented by: Lorazepam (Lorazepam 1 Mg Tablet) 2 mg PO Q2H PRN PRN; Protocol PRN Reason: CIWA score > 8 but <15 Last Admin: 08/17/20 13:17 Dose: 2 mg Documented by: Lorazepam (Lorazepam 1 Mg Tablet) 2 mg PO UD PRN; Protocol PRN Reason: CIWA score >/=15. Lorazepam (Lorazepam 2 Mg/Ml Syringe) 2 mg IV Q2H PRN PRN; Protocol PRN Reason: CIWA score > 8 but <15 Last Admin: 08/18/20 11:03 Dose: 2 mg Documented by: Lorazepam (Lorazepam 2 Mg/Ml Syringe) 2 mg IV UD PRN; Protocol PRN Reason: CIWA score >/=15. Multivitamins/Minerals (Multivitamins,Ther W-Minerals Tablet) [facility] Last Admin: 08/19/20 08:29 Dose: 1 tablet Documented by: Nicotine (Nicotine 21 Mg Patch) 21 mg TD DAILY [facility] Last Admin: 08/19/20 08:28 Dose: 21 mg Documented by: Ondansetron HCl (Ondansetron 8 Mg Tablet) 8 mg PO Q8H PRN PRN PRN Reason: NAUSEA Phenobarbital (Phenobarbital 32.4 Mg Tablet) 32.4 mg PO Q6H [facility]; Taper Stop: 08/20/20 08:59 Last Admin: 08/19/20 08:29 Dose: 32.4 mg Documented by: Sodium Chloride (0.9% Saline Lock 10 Ml Syringe) 10 - 40 ml IV UD PRN PRN Reason: SALINE FLUSH Last Admin: 08/18/20 22:34 Dose: 10 ml Documented by: Trazodone HCl (Trazodone 100 Mg Tablet) 100 mg PO QHS PRN PRN PRN Reason: INSOMNIA Last Admin: 08/19/20 00:02 Dose: 100 mg Documented by: Medical Necessity - Tobacco Use Smoking Status: Heavy Smoker (>10/day) Tobacco Use: Cigarettes Assessment/Plan All Active Problems (Last Updated 11/15/19 @ 20:[address] Riccardo Malik, DO) Alcohol withdrawal (Acute) Alcohol dependence (Acute) 1. Acute alcohol withdrawal, CIWA scores are improved Continue on the phenobarbital/Ativan withdrawal protocol 2. Nicotine dependence, on replacement 3. Acute UTI, continue on Cipro po (will complete antibiotics) 4. DVT prophylaxis with early ambulation Inpatient E&M: 92355 Subs Hosp L2
[2020-08-19 15:05] VITALS: BP 122/73; PULSE 83; RESP 16; TEMP 36.4; O2SAT 97
[2020-08-19] MEDS: LORazepam 2 MG/ML Syringe IV (20:46)
[2020-08-19] MEDS: 0.9% Saline Lock 10 ML Syringe IV (20:46)
[2020-08-19 20:52] VITALS: BP 143/82; PULSE 82; RESP 18; TEMP 36.4; O2SAT 97
[2020-08-20 02:55] VITALS: BP 104/60; PULSE 64; RESP 16; TEMP 36.3; O2SAT 96
[2020-08-20] MEDS: Phenobarbital 32.4 MG Tablet PO (02:56)
--- NOTE | 2020-08-20 08:13 | DCINST_ITS ---
- Discharge Diagnoses Current Active Problems: Current Active and Chronic Problems (Last Updated 11/15/19 @ 20:[address] Riccardo Malik DO) Alcohol dependence (Acute) Reason(s) for Visit for Discharge Instructions: Acute alcohol withdrawal You will use the following diet at home:: Regular Your food should be the consistency of: Regular Your liquids should be the consistency of: Regular/Thin Discharge Activity: Return to Normal Activity Weight Bearing Status: Weight bearing as tolerated Additional Instructions: You are strongly advised to avoid alcohol or use of any illicit drug. Avoid smoking. Follow-up with your outpatient rehab program as scheduled. Allergies/Adverse Reactions: Allergies No Known Allergies Allergy (Verified 11/15/19 18:51) Medications to take at Discharge NK 08/15/20 Primary Care Physician: Beatrice Gonzalez DO [Primary Care Provider] - Please follow up with your Primary Care Physician in: within 1-2 weeks Test Results: Test results from this visit will be discussed in further detail at your follow- up appointment, if applicable. Proposed Discharge Date: 08/20/20
--- NOTE | 2020-08-20 08:19 | DS.PCM_ITS ---
Discharge Date and Diagnosis - Problem List Patient Problems: Active and Suspected Problems (Last Updated 11/15/19 @ 20:[address] Riccardo Malik DO) Alcohol dependence (Acute) Date of Admission: 08/15/20 Date of Discharge: 08/20/20 - Primary Discharge Diagnosis Acute Problems: Active Problems (Last Updated 11/15/19 @ 20:[address] Riccardo Malik DO) Acute alcohol withdrawal Nicotine dependence Hypokalemia Hospital Course and Treatment Operations: None Procedures: None Summary of Care Provided: The patient is a 50 year old F with past medical history of chronic alcohol use disorder, nicotine dependence who comes in requesting medical stabilization for acute alcohol withdrawal. Patient usually drinks 4 tall boys daily. Her last drink was 20 minutes prior to admission. Her work-up in the ED was unremarkable except for hypokalemia and slight elevation in her LFTs Patient was managed on alcohol withdrawal protocol without any acute events. Patient was seen by behavioral social work coordinator and recommended for discharge to an inpatient drug rehab program. Patient Problems: Active and Suspected Problems (Last Updated 11/15/19 @ 20:[address] Riccardo Malik DO) Alcohol dependence (Acute) Subjective: On the day of discharge, patient was seen and examined. Denied any new complaints. Objective: Physical exam: General: Alert, Oriented x3, Cooperative HEENT: Atraumatic, PERRLA, EOMI, Normocephalic Neck: Supple, No JVD, Negative Carotid Bruits Lungs: Clear to auscultation, Normal air movement Cardiovascular: Regular rate, Regular Rhythm, Normal S1, Normal S2, No murmurs Abdomen: Bowel Sounds Present, Soft, Non Tender Extremities: No edema, Capillary Refill Less than 3 Seconds Skin: No rashes, No breakdown Musculoskeletal: No Tenderness to Palpation of Joints or Extremities Neurological: Cranial nerves II-XII grossly intact, Neuro grossly intact, Motor Exam 5/5 strength throughout Psych/Mental Status: Normal Affect, Appropriate, Alert and oriented to time, place, person, mood and affect - Physical Exam Vitals/I&O's: Vital Signs Temp Pulse Resp BP Pulse Ox 97.4 F L 64 16 104/60 96 08/20/20 02:55 08/20/20 02:55 08/20/20 02:55 08/20/20 02:55 08/20/20 02:55 Oxygen Delivery Method Room Air Weight: 71.4 kg Body Mass Index (BMI) 24.6 Intake and Output for Last 24 Hours 08/18/20 08/19/20 08/20/20 23:59 23:59 23:59 Intake Total 1800 / 1800 1090 / 1540 700 / 700 Balance 1800 / 1800 1090 / 1540 700 / 700 Microbiology Past 72 Hours 08/16/20 08:55 Urine, Clean Catch Urine Culture - Final Presumptive Lactobacillus sp. Mixed Gram Positive Organisms Current Medications Ibuprofen (Ibuprofen 400 Mg Tablet) 400 mg PO Q6 [facility] Last Admin: 08/20/20 06:22 Dose: Not Given Documented by: Loperamide HCl (Loperamide 2 Mg Capsule) 2 mg PO Q4H PRN PRN PRN Reason: LOOSE STOOLS Last Admin: 08/17/20 22:14 Dose: 2 mg Documented by: Lorazepam (Lorazepam 1 Mg Tablet) 2 mg PO Q2H PRN PRN; Protocol PRN Reason: CIWA score > 8 but <15 Last Admin: 08/17/20 13:17 Dose: 2 mg Documented by: Lorazepam (Lorazepam 1 Mg Tablet) 2 mg PO UD PRN; Protocol PRN Reason: CIWA score >/=15. Lorazepam (Lorazepam 2 Mg/Ml Syringe) 2 mg IV Q2H PRN PRN; Protocol PRN Reason: CIWA score > 8 but <15 Last Admin: 08/18/20 11:03 Dose: 2 mg Documented by: Lorazepam (Lorazepam 2 Mg/Ml Syringe) 2 mg IV UD PRN; Protocol PRN Reason: CIWA score >/=15. Last Admin: 08/19/20 20:46 Dose: 2 mg Documented by: Multivitamins/Minerals (Multivitamins,Ther W-Minerals Tablet) [facility] Last Admin: 08/19/20 08:29 Dose: 1 tablet Documented by: Nicotine (Nicotine 21 Mg Patch) 21 mg TD DAILY [facility] Last Admin: 08/19/20 08:28 Dose: 21 mg Documented by: Ondansetron HCl (Ondansetron 8 Mg Tablet) 8 mg PO Q8H PRN PRN PRN Reason: NAUSEA Phenobarbital (Phenobarbital 32.4 Mg Tablet) 32.4 mg PO Q6H [facility]; Taper Stop: 08/20/20 08:59 Last Admin: 08/20/20 02:56 Dose: 32.4 mg Documented by: Sodium Chloride (0.9% Saline Lock 10 Ml Syringe) 10 - 40 ml IV UD PRN PRN Reason: SALINE FLUSH Last Admin: 08/19/20 20:46 Dose: 10 ml Documented by: Trazodone HCl (Trazodone 100 Mg Tablet) 100 mg PO QHS PRN PRN PRN Reason: INSOMNIA Last Admin: 08/19/20 20:57 Dose: 100 mg Documented by: Discharge Diet: No Restrictions Discharge Activity: Return to Normal Activity Weight Bearing Status: Weight bearing as tolerated Home Medications: Medications to take at Discharge NK 08/15/20 Primary Care Physician: Beatrice Gonzalez DO [Primary Care Provider] - Please follow up with your Primary Care Physician in: within 1-2 weeks Disposition: Home Minutes spent on discharge:: 25 Patient Condition:: Stable Medical Necessity - Tobacco Use Smoking Status: Heavy Smoker (>10/day) Tobacco Use: Cigarettes Meaningful Use Info Meaningful Use Diagnoses (Choose all that apply): None applicable Inpatient E&M: [id number] [facility]
[2020-08-20] MEDS: Ibuprofen 400 MG Tablet PO (09:00)
[2020-08-20] MEDS: Multivitamins,Ther W-Minerals Tablet 1 TABLET PO (09:01)
--- NOTE | 2020-08-20 09:14 | ADDICTION ---
This continuity writer met with PT in her room to finalize d/c plan. PT to d/c on 08/20 at 10am. She will be transported directly to [facility] for residential treatment by [facility] transportation staff. PT tee.
[2020-08-20 09:19] VITALS: BP 133/39; PULSE 101; RESP 20; TEMP 36.7; O2SAT 99
== END 2020-08-20 10:00 | disposition home or self-care (01) | DRG 775 ==
LOC: ED 23:20 → MS3 08-16 02:15
PROVIDERS: Internal Medicine; Admitting Provider Student in an Organized Health Care Education/Training Program; Emergency Provider Emergency Medicine; PCP Internal Medicine; Visit Provider Internal Medicine
DX: F10.239 Alcohol dependence with withdrawal, unspecified (principal); E87.6 Hypokalemia; J44.9 Chronic obstructive pulmonary disease, unspecified; F17.210 Nicotine dependence, cigarettes, uncomplicated; N39.0 Urinary tract infection, site not specified
CPT/HCPCS: 36415; 80048; 80053; 80307; 81001; 82077; 83735; 85025; 87086; 87088; 97802; 99284; A4216

== ENCOUNTER → 2021-02-23 13:41 | Outpatient (CLI) | payer MEDICAID, SELFPAY ==
[2021-01-27 10:45] VITALS: BMI 24.5
--- NOTE | 2021-02-23 13:42 | CT_ITS ---
STUDY: LOW DOSE CT LUNG CANCER SCREENING REASON FOR EXAM: Female, 50 years old. Lung cancer screening -- 30 ppd; current smoker;asymtpomatic RADIATION DOSAGE (If Supplied By Facility): CTDIvol = ( 2.01 ) mGy, DLP = ( 64.44 ) mGycm TECHNIQUE: No contrast was administered. Low dose technique was utilized (average mAS-38 and kVp 120). 1.25 mm axial source images with a slice interval of 1.25-mm were reconstructed in lung windows. 2.5 mm axial source images with a slice interval of 2.5-mm were reconstructed in lung windows. 5.0 mm axial source images with a slice interval of 5.0-mm were reconstructed in soft tissue windows. Nodule measured using lung windows on PACS and/or independent workstation with automated measurement of minimum and maximum diameter. Nodule measurement reported as average diameter rounded to the nearest whole number. Growth is defined as an increase ins size of greater than 1.5 mm. COMPARISON: None. NODULES: No suspicious nodules are seen. Emphysema: No significant emphysematous change. Endobronchial lesion: None Aorta: Unremarkable Coronary arteries: Unremarkable Heart: Unremarkable Pulmonary artery: Unremarkable Mediastinal nodes: Small mediastinal nodes. Other chest and abdominal findings: CT/Low Dose CT Lung Screening IMPRESSION: Lung-RADS category 2 - Continue annual screening with LDCT in 12 months. IMPORTANT NOTES FOR USE: ACR Lung-RADS Version 1.1 Assessment Categories Release Date: 2018 Category: Coded 0-4 bases on nodule(s) with highest degree of suspicion. Negative screen is defined as categories 1 and 2; a positive screen is defined as categories 3 and 4. Category 3 and 4A nodules that are unchanged on interval CT should be coded as category 2, and individuals returned to screening in 12 months. Category 4X: Category 3 or 4 nodules with additional imaging findings that increase the suspicion of lung cancer, such as spiculation, GGN that doubles in size in 1 year, enlarged lymph notes, etc. Category Modifiers: S (significant finding unrelated to lung cancer) Electronically Signed: Rui Garber MD at 14:12 EDT , Service support ,
== END ==
PROVIDERS: PCP Internal Medicine; Referring Provider Nurse Practitioner Family; Visit Provider Nurse Practitioner Family
DX: Z12.2 Encounter for screening for malignant neoplasm of respiratory organs (principal); F17.209 Nicotine dependence, unspecified, with unspecified nicotine-induced disorders
CPT/HCPCS: 71271

== ENCOUNTER 2021-09-07 12:13 | Outpatient (CLI) | payer MEDICAID, SELFPAY ==
--- NOTE | 2021-09-07 12:15 | US_ITS ---
STUDY: THYROID ULTRASOUND REASON FOR EXAM: Female, 51 years old. Thyroid nodules -- PLEASE ADD TIRAD SCORE. TECHNIQUE: Ultrasound evaluation of the thyroid was performed with real-time and static godoy-scale imaging. COMPARISON: Comparison is made with prior examination dated 01/16/2019. FINDINGS: RIGHT LOBE: The right lobe of the thyroid gland is enlarged and measures 5.5 cm x 2.3 cm x 1.6 cm. There is a heterogeneous echotexture. Multiple nodules are seen. The largest nodule measures 2.4 cm by 2 cm x 1.1 cm in the mid pole . This nodule is solid and cystic with internodular vascularity. TIRADS 3. The remainder of the examination is unchanged.. LEFT LOBE: The left lobe of the thyroid gland is enlarged and measures 5.6 x 1.9 cm x 1.9 cm. There is a heterogeneous echotexture. 5 nodules are seen. The largest measures 2 cm x 1.4 cm x 1.4 cm. Complex solid and cystic nodule with central nodular vascularity. This is in the mid pole. TIRADS 3. The remainder of examination is unchanged. ISTHMUS: The isthmus measures 3 mm. The regional lymph nodes are normal. US/Thyroid IMPRESSION: Multiple bilateral thyroid nodules as described. The largest in the right lobe is in the mid pole measuring 2.4 cm x 2 x 1.1 cm. The largest in the left lobe is in the midportion of the lobe measuring 2 cm by 1.4 cm x 1.4 cm. This is essentially unchanged. Biopsy recommended if not already performed. Electronically Signed: Rui Garber MD at 12:31 EST ,
== END 2021-09-07 23:59 | disposition home or self-care (01) ==
LOC: US 12:14
PROVIDERS: PCP Internal Medicine; Referring Provider Internal Medicine; Visit Provider Internal Medicine
DX: E04.1 Nontoxic single thyroid nodule (principal)
CPT/HCPCS: 76536

== ENCOUNTER 2021-09-15 09:10 | Outpatient (CLI) | payer MEDICAID, SELFPAY ==
[2021-09-15 10:03] LABS: Free T3 3.1 pg/mL (2.18-3.98); T4 Total, Thyroxin 6.7 ug/dL (4.8-13.9)
[2021-09-16 08:35] LABS: Thyroid Peroxidase AB < 8 IU/mL (0-34)
== END 2021-09-15 23:59 | disposition home or self-care (01) ==
LOC: PAVLAB 09:11
PROVIDERS: PCP Internal Medicine; Referring Provider Surgery; Visit Provider Surgery
DX: E04.1 Nontoxic single thyroid nodule (principal)
CPT/HCPCS: 36415; 84436; 84443; 84481; 86376

== ENCOUNTER 2021-09-21 11:32 | Outpatient (CLI) | payer MEDICAID, SELFPAY ==
--- NOTE | 2021-09-21 08:30 | FLU_PTH ---
PATIENT: CAITLYN DEAN LOC: [facility] U#:[id number] AGE/SX: 51/F ROOM: RE09/21/[address]: Dr. Kian Stanford MD : 1970 BED: DIS: 09/21/2021 SPEC #: [id number] RECD: 09/21/21 11:28 STATUS: GI URIEL #: [id number] DALIA: 09/21/21 08:[address]: Kian Stanford DEPT: CYTOLOGY RECD BY: Desire He ENTERED: 09/21/21 12:46 SP TYPE: Fluid OTHR DR: Dr. Akosua Rodriguez MD Tissues: A - Thyroid gland, NOS B - Thyroid gland, NOS C - Thyroid gland, NOS D - Thyroid gland, NOS E - Thyroid gland, NOS F - Thyroid gland, NOS Procedures: Special Stain Group II Surgery Specimen Level IV Cytospin Fluid Cytology Other HEADER OPERATION: Fine needle aspiration, left thyroid x2, right thyroid PRE-OP DIAGNOSIS: Multiple thyroid nodules TISSUE SUBMITTED: A - FNA, left superior thyroid nodule fluid, B - FNA, left superior thyroid nodule x6 slides, C - FNA, left inferior thyroid nodule fluid, D - FNA, left inferior thyroid nodule x4 slides, E - FNA, right inferior thyroid nodule fluid, F - FNA, right inferior thyroid nodule x4 slides DIAGNOSIS CYTOLOGY A. Fine needle aspiration, left superior thyroid nodule (cytospin and cell block): Adequate for evaluation. Negative, consistent with benign follicular nodule. B. Fine needle aspiration, left superior thyroid nodule (smears): Adequate for evaluation. Negative, consistent with benign follicular nodule. C. Fine needle aspiration, left inferior thyroid nodule (cytospin and cell block): Adequate for evaluation. Negative, consistent with benign follicular nodule with cystic change. D. Fine needle aspiration, left inferior thyroid nodule (smears): Adequate for evaluation. Negative, consistent with benign follicular nodule with cystic change. E. Fine needle aspiration, right inferior thyroid nodule (cytospin and cell block): Negative for malignant cells. See comment. F. Fine needle aspiration, right inferior thyroid nodule (smears): Rare follicular cells with mild atypia of uncertain significance. See comment. AM:darcie 09/22/2021 COMMENT E. Rare follicular cells are present. Clinical correlation is suggested. F. The specimen is markedly hypocellular and precludes further evaluation. Clinical correlation is suggested. CYTOLOGY STUDY Slides are reviewed. CYTOLOGY GROSS A - Received is 30 ml of red cloudy fluid labeled with the patient's name and and designated per the requisition as left superior thyroid nodule. Submitted for cytology preparation including cell block. B - Received are six smears labeled with the patient's name and designated per the requisition as left superior thyroid nodule. Submitted for staining. C - Received is 30 ml of red cloudy fluid labeled with the patient's name and and designated per the requisition as left inferior thyroid nodule. Submitted for cytology preparation including cell block. D - Received are four smears labeled with the patient's name and designated per the requisition as left inferior thyroid nodule. Submitted for staining. E - Received is 20 ml of red cloudy fluid labeled with the patient's name and and designated per the requisition as right inferior thyroid nodule. Submitted for cytology preparation including cell block. F - Received are four smears labeled with the patient's name and designated per the requisition as right inferior thyroid nodule. Submitted for staining. / darcie 09/21/2021 TC:? CPT: 32562 x6, 92656 x3
== END 2021-09-21 23:59 | disposition home or self-care (01) ==
LOC: LABSPEC 11:34
PROVIDERS: PCP Internal Medicine; Referring Provider Surgery; Visit Provider Surgery
DX: E04.2 Nontoxic multinodular goiter (principal)
CPT/HCPCS: 88108; 88161; 88305; 88313

== ENCOUNTER 2021-10-19 11:10 | Outpatient (CLI) | payer MEDICAID, SELFPAY ==
--- NOTE | 2021-10-19 09:00 | FLU_PTH ---
PATIENT: CAITLYN DEAN LOC: [facility] U#:[id number] AGE/SX: 51/F ROOM: RE10/19/[address]: Dr. Kian Stanford MD : 1970 BED: DIS: 10/19/2021 SPEC #: [id number] RECD: 10/19/21 11:08 STATUS: GI TREVINO #: [id number] DALIA: 10/19/21 09:[address]: Kian Stanford DEPT: CYTOLOGY RECD BY: Desire He ENTERED: 10/19/21 11:58 SP TYPE: Fluid OTHR DR: Dr. Akosua Rodriguez MD Tissues: A - Thyroid gland, NOS B - Thyroid gland, NOS Procedures: Special Stain Group II Surgery Specimen Level IV Cytospin Fluid Cytology Other HEADER OPERATION: Right thyroid fine needle aspiration PRE-OP DIAGNOSIS: Thyroid nodules TISSUE SUBMITTED: A ? Right thyroid nodule inferior fluid, B - Right thyroid nodule inferior x4 slides DIAGNOSIS CYTOLOGY A. Fine needle aspiration, right inferior thyroid nodule (cytospin and cell block): Negative for malignant cells. See comment. B. Fine needle aspiration, right thyroid nodule (smears): Consistent with benign follicular/colloid nodule (Taft category II). See comment. AM:darcie 10/20/2021 COMMENT A. The specimen is nondiagnostic for thyroid nodule. No follicular cells are present. Clinical correlation is suggested. B. The specimen is adequate for evaluation. CYTOLOGY STUDY Slides are reviewed. CYTOLOGY GROSS A - Received is 30 ml of red cloudy fluid labeled with the patient's name and and designated per the requisition as right thyroid nodule inferior. Submitted for cytology preparation including cell block. B - Received are four smears labeled with the patient's name and designated per the requisition as right thyroid nodule inferior. Submitted for staining. / darcie 10/19/2021 TC:5 CPT: 60528 x2, 00373
== END 2021-10-19 23:59 | disposition home or self-care (01) ==
LOC: LABSPEC 11:13
PROVIDERS: PCP Internal Medicine; Referring Provider Surgery; Visit Provider Surgery
DX: E04.2 Nontoxic multinodular goiter (principal)
CPT/HCPCS: 88108; 88161; 88305; 88313